=== PATIENT | female | born 2000 | race Caucasian/White ===

== ENCOUNTER 2024-08-18 14:20 | Emergency (ER) | payer SELFPAY ==
[2024-08-18 14:21] VITALS: BP 117/70; PULSE 94; RESP 20; TEMP 36.2; O2SAT 97
[2024-08-18 14:25] VITALS: BP 117/70; PULSE 94; RESP 20; TEMP 36.2; O2SAT 97
--- NOTE | 2024-08-18 14:27 | ED.GENADUL_ITS ---
Discharge Plan Disposition Patient Disposition: Home Discharge Details Clinical Impression: COVID-19 Primary Care Provider: Unknown,Unknown ED Provider: Vishal Villalobos Home Meds and New Rx's Prescriptions: New promethazine-DM 6.25-15 mg/5 mL syrup 5 ml PO Q6H PRNQty: 118 0RF cetirizine 10 mg tablet 10 mg PO DAILY PRNQty: 7 0RF benzonatate 100 mg capsule 100 mg PO BID PRNQty: 7 0RF fluticasone propionate [Flonase Allergy Relief] 50 mcg/actuation spray,suspension 1 spray intranasal DAILY Qty: 16 0RF Rx Instructions: administer into each nostril Pataday Once Daily Relief 0.7 % drops 1 drp ophthalmic (eye) DAILY PRNQty: 2.5 0RF Discharge Instructions Additional Instructions: You are seen in the emergency department for your cough and COVID infection. Please take these medications as directed. As we discussed if your oxygen saturations are in the high 80s or if you feel increasingly short of breath or if you do not urinate at least once every 8 hours while awake please return to the emergency department. For your pain please take medications as follows: 1. Take acetaminophen (Tylenol), 1,000 mg (two 500 mg tabs) every 6 hours [2. Take ibuprofen (Advil), 400 mg every 6 hours.] Discharge Data Discharge Date/Time-TO BE ENTERED AT DEPARTURE: 08/18/24 15:13 HPI General Date/Time Provider Initiated Documentation: 08/18/24 14:27 . HPI Narrative: MDM This is an overall very well-appearing afebrile and not tachycardic nor hypoxic 24-year-old female with COVID for which she will receive empiric trial of expectant outpatient management using her home pulse oximeter. Patient does have history of asthma and has received nirmatrelvir boosted ritonavir in the past however she has had multiple COVID infections at this point and my suspicion is that the side effects outweigh benefits as she may have been high risk for the first time she had COVID but the virus is significantly different at this point in time. She is not hypoxic to suggest benefit from dexamethasone or hospitalization. No pain or proportion to suggest necrotizing soft tissue infection. No fevers and no abnormal lung sounds to suggest concurrent bacterial pneumonia so I did not obtain a chest x-ray as I felt that there were risks of false positives and adverse reactions antibiotics. No nuchal rigidity to suggest meningitis. Patient has not been vomiting to suggest increased risk for subdural empyema. No significant posterior oropharynx erythema to suggest strep pharyngitis. Good range of motion in neck so I am not suspicious for retropharyngeal abscess. No nuchal rigidity to suggest meningitis. Patient did have slight tearing from her right eye however had no signs of conjunctivitis. I suspect that her clear eye discharge was secondary to COVID so I prescribed her antihistamine eyedrops. No purulent discharge to suggest bacterial conjunctivitis so no indication for antibiotics. Will treat her symptomatically with Flonase for her congestion and Tessalon Perles for her cough. We discussed return indications including worsening shortness of breath inability tolerate p.o. or less than 1 episode of urination every 8 hours. She understood her return indications and will follow-up with her primary care provider as needed. HPI The patient presents to the emergency room for evaluation of COVID-19. She tested positive for COVID-19 two days ago, marking her third encounter with the virus. She attempted to contact her primary care physician yesterday but was unsuccessful. She prefers not to visit the ER but finds her current symptoms intolerable. She reports severe congestion and experienced significant respirat ory distress yesterday, to the point of breathlessness even at rest. Her condition has slightly improved today, provided she remains relatively inactive. She has not received any COVID-19 vaccinations. She reports no diarrhea or vomiting but notes a decreased appetite. She reports altered taste and smell but not complete loss. She describes a general feeling of malaise. She is not aware of any fevers. She recently recovered from a severe illness three weeks ago, which was accompanied by a fever. Her current illness began with a scratchy throat, and she has been experiencing intermittent voice loss. Her cough is less frequent and severe than before. She took Mucinex Cold and Flu liquid yesterday around noon, which did not provide relief. She has severe asthma and has been using her inhaler more frequently, which caused her to feel jittery yesterday. She also reports ocular irritation and excessive tearing in her right eye since yesterday, which she attributes to potential exposure to the virus through coughing or sneezing into her hands and then touching her eye. Her vision in the affected eye is compromised due to the excessive tearing. Exam General: Well-appearing in no acute distress speaking in complete sentences. Head: Normocephalic, atraumatic. Eye: Right eye mild clear discharge. Extraocular eye movements intact. No conjunctival injection. No scleral icterus. No afferent pupillary defect. Ear, nose, mouth, throat: Grossly normal inspection. Normal voice, handling secretions normally. Uvula midline.No significant posterior oropharynx erythema. Neck: Trachea midline.Good range of motion in neck. Cardiovascular: Well-perfused distal extremities. Respiratory: Nonlabored respiration. Clear lungs bilaterally. No wheezes. No abnormal lung sounds. Gastrointestinal: Nondistended abdomen. Musculoskeletal: No edema. Moving all 4 extremities spontaneously. Skin: Normal for age and race, grossly normal temperature and turgor. No acute rash. Neurologic: Alert and appropriate, no apparent acute deficits. Psychiatric: Mood and manner are appropriate. Grooming and personal hygiene are appropriate. Related Data Home Medications ?Medication ?Instructions ?Recorded ?Confirmed benzonatate 100 mg capsule 100 mg PO BID PRN #7 caps 08/18/24 cetirizine 10 mg tablet 10 mg PO DAILY PRN #7 tabs 08/18/24 fluticasone propionate 50 1 spray intranasal DAILY #16 grams 08/18/24 mcg/actuation nasal spray,suspension (Flonase Allergy Relief) olopatadine 0.7 % eye drops 1 drp ophthalmic (eye) DAILY PRN 08/18/24 (Pataday Once Daily Relief) #2.5 mL promethazine-DM 6.25 mg-15 mg/5 mL 5 ml PO Q6H PRN #118 mL 08/18/24 oral syrup Previous Rx's ?Medication ?Instructions ?Recorded benzonatate 100 mg capsule 100 mg PO BID PRN #7 caps 08/18/24 cetirizine 10 mg tablet 10 mg PO DAILY PRN #7 tabs 08/18/24 fluticasone propionate 50 1 spray intranasal DAILY #16 grams 08/18/24 mcg/actuation nasal spray,suspension (Flonase Allergy Relief) olopatadine 0.7 % eye drops 1 drp ophthalmic (eye) DAILY PRN 08/18/24 (Pataday Once Daily Relief) #2.5 mL promethazine-DM 6.25 mg-15 mg/5 mL 5 ml PO Q6H PRN #118 mL 08/18/24 oral syrup Allergies Allergy/AdvReac Type Severity Reaction Status Date / Time amoxicillin Allergy Skin Rash Verified 08/18/24 14:24 General Stated Complaint: RespSymp TRISHA: 3 Course Vital Signs Vital signs: Vital Signs Temperature 36.2 C L 08/18/24 14:21 Pulse 94 H 08/18/24 14:21 Respiratory Rate 20 08/18/24 14:21 Blood Pressure 117/70 08/18/24 14:21 Pulse Oximetry 97 08/18/24 14:21 Temperature 36.2 C L 08/18/24 14:25 Temperature Source Oral 08/18/24 14:25 Pulse 94 H 08/18/24 14:25 Respiratory Rate 20 08/18/24 14:25 Blood Pressure 117/70 08/18/24 14:25 Blood Pressure Position Sitting 08/18/24 14:25 Pulse Oximetry 97 08/18/24 14:25 Oxygen Delivery Method Room Air 08/18/24 14:25 Oxygen Flow Rate 0 08/18/24 14:25 Medical Decision Making Quality:SDOH Health Related Social Needs: No Data to Display PFSH All Active Problems (Updated 08/18/24 @ 14:49 by Vishal Villalobos MD) COVID-19 (Acute) Social History Smoking/Tobacco Use Status: Current every day Tobacco Type: e-cigarettes Smoking risk assessment performed?: Yes Alcohol Intake: current Alcohol Intake frequency: a few times a week Drug use: Daily Substance use type: marijuana Do you feel safe at home: Yes Do you feel safe in your relationship?: Yes PAWSS Have you Been Recently Intoxicated or Drunk Within the Last 30 days?: No Have you Ever Experienced Previous Episodes of Alcohol Withdrawal?: No Have you ever Experienced Withdrawal Seizures?: No Have you ever Experienced Delirium Tremens(DT)s?: No Have you ever undergone Alcohol Rehabilitation Treatment (i.e, inpt ot outpatient treatment programs)?: No Have you ever Experienced Blackouts?: No Have you ever Combined Alcohol with other Downers within the last 90 days?: No Have you ever Combined Alcohol with any other Substance of Abuse during the last 90 days?: No Positive Blood Alcohol level on Presentation? [PCS.BAL]: No Evidence of Increased Autonomic Activity (i.e. HR>120, tremor, sweating, agitation, nausea)?: No Result: 0
[2024-08-18] MEDS: Acetaminophen 500 MG TAB 1000 MG PO (14:59)
[2024-08-18] MEDS: Benzonatate 100 MG CAP PO (14:59)
[2024-08-18] MEDS: Ibuprofen 600 MG TAB PO (15:00)
--- OUTSIDE RECORDS SUMMARY | 2024-08-18 15:26 | XMS_ITS | Encounter Summary ---
Author Organization [facility] Address [address] [place] [address] Care Team Providers Care Sheet Turner Name Role Phone [facility] Primary Care Provider Encounter Details Date Type Department Care Team (Latest Contact Info) Description 07/10/2022 Travel Social History Tobacco Use Types Packs/Day Years Used Date Smoking Tobacco: Every Day Smokeless Tobacco: Never Comments:vapes, no cigarette s Alcohol Use Standard Drinks/Week Comments Yes 0 (1 standard drink = 0.6 oz pur e alcohol) about 3 times per month Comments Unknown Sex and Gender Information Value Date Recorded Sex Assigned at Not on file Legal Sex Female 18:31 EST Gender Identity Not on file Sexual Orientation Not on file COVID-19 Exposure Response Date Recorded In the last 10 days, have yo u been in contact with someone who was confirmed or suspected to have Coronavirus/COVID-19? No / Unsure 07/10/2022 16:45 EST documented as of this encounter Functional Status * Are you deaf or do you have serious difficulty hearing? Answer Date of Assessment Author No 07/10/2022 16:45 EST Jeri Garza RN documented as of this encounter Plan of Treatment Not on file documented as of this encounter Visit Diagnoses Not on filedocumented in this encounter Additional Health Concerns Infection Onset Date Last Indicated Resolved Time R/O COVID-19 07/10/2022 07/10/2022 07/15/2022 22:1 5 EST RSV 07/10/2022 07/10/2022 07/20/2022 22:1 5 EST documented as of this encounter Care Teams Sheet Turner Relationship Specialty Start Date End Date Care, [place] [address] PCP - General Family Medicine - Primary Care 06/25/21 05/16/24 documented as of this encounter
--- OUTSIDE RECORDS SUMMARY | 2024-08-18 15:26 | XMS_ITS | Encounter Summary ---
Author Organization [facility] Address [address] [place] [address] Care Team Providers Care Net Manager Name Role Phone Edwina Naylor Isacc [employer]PER[employer] Primary Care Provider + Reason for Visit * Reason Comments Shortness of Breath Patient arrives to E D reporting SOB starting this morning. Pt reporting spO2 89% on RA on home O2 sensor. RR 22, spO2 100% in triage. Hx: Asthma Encounter Details Date Type Department Care Team (Late st Contact Info) Description 05/17/2024 9:38 EDT - 05/17/2024 11:11 EDT Emergency [facility] Emergency Department - Main [address] [address] David Stallings MD [address] [place] [phone] Shortness of breath (Primary Dx); Asthma with acute exacerbation, unspecified asthma severity, unspecified whether persistent Discharge Disposition: Home or Self Care Social History Tobacco Use Types Packs/Day Years Used Date Smoking Tobacco: Every Day Smokeless Tobacco: Never Tobacco Cessation:Ready to Q uit: Not Asked; Counseling Given: Not Answered Comments:vapes, no cigarettes Alcohol Use Standard Drinks/Week Comments Yes 0 (1 standard drink = 0.6 oz pur e alcohol) about 3 times per year Comments Unknown Sex and Gender Information Value Date Recorded Sex Assigned at Not on file Legal Sex Female 18:31 EST Gender Identity Not on file Sexual Orientation Not on file documented as of this encounter Last Filed Vital Signs Vital Sign Reading Time Taken Comments Blood Pressure 135/60 05/17/2024931 EDT Pulse - - Temperature 36.3 ??C (97.4 ??F) 05/17/2024931 EDT Respiratory Rate 22 05/17/2024931 EDT Oxygen Saturation 100% 05/17/2024931 EDT Inhaled Oxygen Concentration - - Weight 102.1 kg (225 lb) 05/17/2024931 EDT Height 165.1 cm (5' 5) 05/17/2024931 EDT Body Mass Index 37.44 05/17/2024931 EDT documented in this encounter Functional Status * Are you deaf or do you have serious difficulty hearing? Answer Date of Assessment Author No 05/17/2024 9:30 EDT Karishma Sanz RN documented as of this encounter Discharge Instructions * Discharge Instructions* Pauly Marroquin PA-C - 05/17/2024 10:43 EDT You Were Seen For shortness of breath What We Found Your evaluation showed you were negative for COVID, flu and RSV You had some slight wheezing and were given an albuterol treatment We are sending home with an albuterol inhaler, you may use this every 2-4 hours with 2 puffs as needed for shortness of breath You were also given a steroid to help with your breathing What to Expect Expect that your symptoms should resolve What to Do Please rest, stay well-hydrated Please continue with your home medications, you may use the albuterol inhaler every 4 hours as needed for shortness of breath When to See a Doctor Please follow up with your primary care doctor When to Return Return to the emergency department immediately for new or worsening shortness of breath or chest pain, inability to eat or drink, blood in your stool or vomit, lower extremity swelling, or any other new or concerning symptoms to you documented in this encounter Medications at Time of Discharge ADVAIR DISKUS 250-50 mcg/dose diskus inhaler INHALE 1 DOSE BY MOUTH TWICE DAILY 09/10/2022 albuterol (ACCUNEB) 2.5 mg /3 mL (0.083 %) nebulizer solution USE 1 VIAL IN NEBULIZER EVERY 6 HOURS 11/24/2022 albuterol 90 mcg/actuation inhaler Inhale 2 Puffs as directed every 4 hours as needed for Wheezing. amitriptyline (ELAVIL) 25 mg tablet Take 1 Tablet by mouth at bedtime. 09/15/2022 BINAXNOW COVID-19 AG SELF TEST kit TEST DIRECTED TODAY 03/12/2022 cetirizine (ZYRTEC) 10 mg tablet Take 1 Tablet by mouth daily. fluconazole (DIFLUCAN) 150 mg tablet 11/16/2022 montelukast (SINGULAIR) 10 mg tablet Take 1 Tablet by mouth daily. PROAIR RESPICLICK 90 mcg/actuation inhaler inhale 1 puff by mouth every 4 hours as needed 02/14/2023 SPRINTEC, 28, 0.25-35 mg-mcg per tablet 02/19/2023 valACYclovir (VALTREX) 1 gram tablet TAKE 2 TABLETS BY MOUTH TWICE DAILY FOR 1 DAY 10/29/2022 documented as of this encounter Discharge Disposition Disposition Code Departure Means Destination Comment s Home or Self Senior Living documented in this encounter ED Notes * Marina Tobar RN - 05/17/2024 1024 EDT Pt OOB on RA. SpO2 97-87% on RA HR 86. TG marroquin aware. Patient is resting quietly with no complaints states I feel better after neb * Pauly Marroquin PA-C - 05/17/2024 0928 EDT Images from the original note were not included. [facility] Emergency Department Note Emergency Department Visit Medical Decision Making This is a 24 y.o. female with PMHx of asthma (no prior intubations or hospitalizations) who is presenting to the Emergency Department with shortness of breath and chest tightness sensation over the past day. Vital signs within normal limits, she is saturating 97% on room air, she intermittently has increased work of breathing however with counseling this improves. Lung sounds are overall clear, slightly diminished at the bases but no wheezing. Differential diagnosis includes asthma exacerbation, reactive airway disease, COVID-19 given reports of cough and congestion, seasonal allergies. Seemsless likely to be pneumonia given 1 day of symptoms and no fevers. Will plan for COVID-19 testing, will plan for albuterol inhaler, will plan for continuous pulse oximetry, will observe and reassess. ED Course Relevant Data as of 05/17/24 1103 Tika May 17, 2024 1048 SARS CoV2, Flu A/B, RSV Detect by PCR COVID, flu negative [HG] 1048 Ambulatory sat normal [HG] 1103 Discussed findings and plan. Return precautions given. Patient well appearing. Discharge home to follow up with PCP [HG] Relevant Data User Index [HG] Pauly Marroquin PA-C Medical Decision Making Problems Addressed: Asthma with acute exacerbation, unspecified asthma severity, unspecified whether persistent: complicated acute illness or injury Shortness of breath: complicated acute illness or injury Amount and/or Complexity of Data Reviewed Labs: Decision-making details documented in ED Course. Risk Prescription drug management. The following problems were addressed: Final diagnoses: Shortness of breath Asthma with acute exacerbation, unspecified asthma severity, unspecified whether persistent Chief complaint: Chief Complaint Patient presents with Shortness of Breath Patient arrives to ED reporting SOB starting this morning. Pt reporting spO2 89% on RA on home O2 sensor. RR 22, spO2 100% in triage. Hx: Asthma HPI: 24 y.o. female with PMHx of asthma (no prior intubations or hospitalizations) who is presenting to the Emergency Department with shortness of breath and chest tightness sensation over the past day. Patient states she drove an hour and a half from [facility] for work.On her ride over she noted chest tightness and shortness of breath sensation. She started feeling woozy so pulled over. She had a pulse oximeter in the car which initially read 88 to 89% however increased to the 90s after some time. She does report over the past 2 days she has had a cough productive of green sputum. Mild congestion. She reports that her asthma triggers include inhalation of things like perfume. Denies any recent exposures. She does report that she had a lapse in her insurance recently and has not been taking the Advair because she does not like the powder. She is still takingher montelukast and cetirizine, but has run out of her inhaler. She denies any hemoptysis, no lowerextremity swelling. History was provided by: Patient, records Patient's pertinent PMH, FH, SH were reviewed and edited as necessary. Nurse note reviewed and confirmed. Physical Exam Patient Vitals for the past 24 hrs: BP Temp Temp src Resp SpO2 Height Weight 05/17/24 0932 135/60 36.3 ??C (97.4 ??F) Oral 22 100 % 165.1 cm (65) (!) 102.1 kg (225 lb) A medical screening exam was performed. Physical Exam Gen: BP 135/60 (BP Cuff Location: Left arm, BP Patient Position: Sitting) Temp 36.3 ??C (97.4 ??F) (Oral) Resp 22 Ht 165.1 cm (65) Wt (!) 102.1 kg (225 lb) SpO2 100% BMI 37.44 kg/m?? . Well-appearing, no distress. Eyes: Anicteric. PERRL ENT: Atraumatic. Oropharynx no tonsillar erythema or exudates. Resp: Slightly increased work of breathing however with counseling this slows. Lung sounds are slightly diminished at the bases, otherwise clear to auscultation. CV: RRR. No lower extremity swelling or asymmetry. GI: Nondistended. Nontender to palpation. MSK: No deformities, well perfused extremities Skin: Warm, dry. no rash, no bruising. Neuro: Normal speech. alert & oriented x 3,. GCS 15 Psych: Normal affect. Disposition: Home Condition on Discharge: Good Reasons to return to the ED were reviewed in detail. The patient agrees with this plan and disposition. This chart was generated using voice-recognition software. I have read the note but there are oftensubtle changes that are difficult to identify. Please contact me for clarification if necessary. Cosigned by David Stallings MD at 05/19/2024 15:42 EDT Associated attestation - David Stallings MD - 05/19/2024 1542 EDT I reviewed this case with the Advanced Practice Provider. I personally made/approved the managementplan for this patient and take responsibility for the patient management. I evaluated this patient [id number] and provided a substantive portion of the patient's care. My personal evaluation included a face to face history and physical exam, review of nursing notes, review of vital signs, review of relevant records, and review of diagnostic data. Based on all of these elements I formulated, and/or participated substantively in the medical decision making, including assessing the level of risk of the patient's complaints and condition, establishing a diagnosis and/or selecting management options. Final diagnoses: Shortness of breath Asthma with acute exacerbation, unspecified asthma severity, unspecified whether persistent documented in this encounter Plan of Treatment Not on file documented as of this encounter Procedures Procedure Name Priority Date/Time Associated Diagnosis Comments SARS COV2, FLU A/B, RSV DETECT BY PCR STAT 05/17/2024 9:36 EDT documented in this encounter Results * SARS COV2, FLU A/B, RSV DETECT BY PCR (05/17/2024 9:36 EDT) FLU A RNA Result (FLARES) Negative Negative 05/17/2024 10:41 EDT [facility] FLU B RNA Result (FLBRES) Negative Negative 05/17/2024 10:41 EDT [facility] RSV RNA Result (RSVRES) Negative Negative 05/17/2024 10:41 EDT [facility] COVID-19 rt-PCR Result Negative Negative 05/17/2024 10:41 EDT [facility] Comment: Negative results do not preclude 2019-nCoV infection and should not be used as the sole basis for treatment or other patient management decisions. Negative results must be combined with clinical observations, patient history, and epidemiological information. Performed on the [email or web address] GeneXpert Instrument Swab NASOPHARYNGEAL STRUCTURE / Unknown Swab / Unknown 05/17/2024 9:36 EDT 05/17/2024 9:53 EDT us Gilma Fuentes MD MICROBIOLOGY - GENERAL ORDERABLES Final Result [facility] [address] [place] [id number] documented in this encounter Visit Diagnoses Diagnosis Shortness of breath- Primary Asthma with acute exacerbation, unspecified asthma severity, unspecified whether persistent documented in this encounter Administered Medications Inactive Administered Medications - up to 3 most recent administrations Medication Order MAR Action Action Date Dose Rate Site albuterol (VENTOLIN HFA) inhaler STARTER PACK 1 Package, inhalation, NOW X1, 1 dose, On Tika 05/17/24 at 1045, STAT Given 05/17/2024 10:59 EDT 1 Package dexAMETHasone (DECADRON) tablet 6 mg 6 mg, oral, NOW X1, 1 dose, On Tika 05/17/24 at 1045, STAT Given 05/17/2024 10:59 EDT 6 mg ipratropium-albuteroL (DUONEB) 0.5 mg-3 mg(2.5 mg base)/3 mL nebulizer solution 3 mL 3 mL, nebulization, NOW X1, 1 dose, On Tika 05/17/24 at 1000, STAT Given 05/17/2024 10:10 EDT 3 mL documented in this encounter Active and Recently Administered Medications Times are shown in EDT. Scheduled Medication Order 05/15/2024 05/16/2024 05/17/2024 albuterol (VENTOLIN HFA) inhaler STARTER PACK (COMPLETED) 1 Package, inhalation, NOW X1, 1 dose, On Tika 24 at 1045, STAT 1059 (Given - Provid er: Marina Tobar RN) dexAMETHasone (DECADRON) tablet 6 mg (COMPLETED) 6 mg, oral, NOW X1, 1 dose, On Tika 24 at 1045, STAT 1059 (Given - Provid er: Marina Tobar RN) ipratropium-albuteroL (DUONEB) 0.5 mg-3 mg(2.5 mg base)/3 mL nebulizer solution 3 mL (COMPLETED) 3 mL, nebulization, NOW X1, 1 dose, On Tika 05/17/24 at 1000, STAT 1010 (Given - Provid er: Patel Head RN) documented in this encounter Additional Health Concerns Infection Onset Date Last Indicated Resolved Time R/O COVID-19 05/17/2024 05/17/2024 05/17/2024 10:4 1 EDT documented as of this encounter Care Teams Net Manager Relationship Specialty Start Date End Date Edwina Naylor NP [address] [place] [phone] PCP - General Family Medicine - Primary Care 05/17/24 documented as of this encounter
--- OUTSIDE RECORDS SUMMARY | 2024-08-18 15:26 | XMS_ITS | Encounter Summary ---
Author Organization [facility] Address [address] [place] [address] Care Team Providers Care Special Forces Specialist Name Role Phone Care, [facility] Primary Care Provider Reason for Visit * Reason Comments COVID-19 Pt sts she tested po sitive for covid via home test today. Co sore throat, nausea, headaches. In no resp distress at this time. Encounter Details Date Type Department Care Team (Late st Contact Info) Description 07/22/2023 19:49 EST - 07/22/2023 20:21 EST Emergency [facility] Emergency Department [address] [place] [address] Alex Myers MD [address] [place] [address] COVID-19 (Primary Dx) Discharge Disposition: Home or Self Care Social [...] Sign Reading Time Taken Comments Blood Pressure 136/82 07/22/2023 1942 EST Pulse 102 07/22/2023 2000 EST Temperature 38.8 ??C (101.9 ??F) 07/22/2023 194 EST Respiratory Rate 20 07/22/20231999 EST Oxygen Saturation 97% 07/22/20231999 EST Inhaled Oxygen Concentration - - Weight - - Height - - Body Mass Index - - documented in this encounter Functional Status * Are you deaf or do you have serious difficulty hearing? Answer Date of Assessment Author No 10/13/2022 18:19 EST Bharat Carreno RN documented as of this encounter Discharge Instructions * Discharge Instructions* Alex Myers MD - 07/22/2023 19:57 EST [facility] Emergency Department Discharge Instructions Diagnosis: COVID Instructions / expected course of illness: Symptoms should improve over the next several days. Takethe Paxlovid we have given you as this reduces the risk of needing to be hospitalized with severe illness For pain you can take: Ibuprofen (also known as advil or motrin) 400-600mg Acetaminophen (known as Tylenol) 650mg You can alternate these every 3 hours or take them together every 6 hours. Follow up: With your primary care doctor Return Precautions: If you have significant worsening of your symptoms especially significant worsening trouble breathing or other symptoms that are particularly concerning to you please return to the emergency room forreevaluation. documented in this encounter Medications at Time [...] Destination Comment s Home or Self Senior Care documented in this encounter ED Notes * Alex Myers MD - 07/22/2023 192 EST Emergency Department Visit Medical Decision Making Medical Decision Making COVID-19: complicated acute illness or injury Risk OTC drugs. Prescription drug management. 23-year-old with a history of asthma presents for evaluation of myalgias, fevers, headache, cough and chest discomfort. Tested positive for COVID this morning. Symptoms seem very consistent with COVID-19 infection. No wheezing on exam. No tachypnea. No hypoxia. Treated with ibuprofen and Tylenol for fever and tachycardia. Discharged with Paxlovid due to history of asthma. Final diagnoses: COVID-19 Disposition: Discharged Chief complaint: Myalgias, cough, chest discomfort, headache, tested positive for COVID this HPI Emily Norton is a 23 y.o. female with history of who presents to the ED for the above. Roughly 2 to 3 days of symptoms. No significant difficulty breathing. Tried some ibuprofen this morning but none since then. No vomiting reported. Patient's pertinent PMH, FH, SH were reviewed and edited as necessary. Nursing notes reviewed. A medical screening exam was performed. Physical Exam BP 136/82 (BP Cuff Location: Left arm, BP Patient Position: Sitting) Pulse 102 Temp (!) 38.8 ??C (101.9 ??F) (Oral) Resp 20 SpO2 97% Physical Exam Vitals and nursing note reviewed. Constitutional: General: She is not in acute distress. Appearance: She is well-developed. HENT: Head: Normocephalic and atraumatic. Neck: Trachea: No tracheal deviation. Cardiovascular: Rate and Rhythm: Normal rate and regular rhythm. Pulmonary: Effort: Pulmonary effort is normal. No respiratory distress. Musculoskeletal: General: Normal range of motion. Cervical back: Normal range of motion. Skin: General: Skin is warm and dry. Findings: No rash. Neurological: Mental Status: She is alert and oriented to person, place, and time. Motor: No abnormal muscle tone. Procedures Procedures documented in this encounter Plan of Treatment Not on file documented as of this encounter Visit Diagnoses Diagnosis COVID-19- Primary documented in this encounter Administered Medications Inactive Administered Medications - up to 3 most recent administrations Medication Order MAR Action Action Date Dose Rate Site acetaminophen (TYLENOL) tablet 975 mg 975 mg (rounded from 1,000 mg), oral, NOW X1, 1 dose, On Tue07/22/23 at 2014, Routine Given 07/22/2023 20:13 EST 975 mg ibuprofen (MOTRIN) tablet 400 mg 400 mg, oral, NOW X1, 1 dose, On Tue07/22/23 at 2014, Routine Given 07/22/2023 20:13 EST 400 mg nirmatrelvir-ritonavir (PAXLOVID 300-100 (EUA)) Starter Pack 1 Package 1 Package, oral, Once (Without Time Specified), 10 doses, Starting on Tue07/22/23 at 1956, Until Tue07/22/23 at 2221, Routine Given 07/22/2023 20:13 EST 1 Package documented in this encounter Active and Recently Administered Medications Times are shown in EST. Scheduled Medication Order 07/20/2023 07/21/2023 07/22/2023 acetaminophen (TYLENOL) tablet 975 mg (COMPLETED) 975 mg (rounded from 1,000 mg), oral, NOW X1, 1 dose, On Tue07/22/23 at 2014, Routine 2012 (Given - Provid er: Brunilda Vasquez RN) ibuprofen (MOTRIN) tablet 400 mg (COMPLETED) 400 mg, oral, NOW X1, 1 dose, On Tue07/22/23 at 2014, Routine 2012 (Given - Provid er: Brunilda Vasquez RN) nirmatrelvir-ritonavir (PAXLOVID 300-100 (EUA)) Starter Pack 1 Package 1 Package, oral, Once (Without Time Specified), 10 doses, Starting on Tue07/22/23 at 1956, Until Tue07/22/23 at 2221, Routine 2012 (Given - Provid er: Brunilda Vasquez RN) documented in this encounter Care Teams Special Forces Specialist Relationship Specialty Start Date End Date Care, [address] [address] PCP - General Family Medicine - Primary Care 06/25/21 05/16/24 documented as of this encounter
--- OUTSIDE RECORDS SUMMARY | 2024-08-18 15:26 | XMS_ITS | Encounter Summary ---
Author Organization [facility] Address [address] [place] [address] Care Team Providers Care Neon Installer Name Role Phone [facility] Primary Care Provider Encounter Details Date Type Department Care Team (Latest Contact Info) Description 01/22/2022 Travel Social History Tobacco Use Types Packs/Day [...] suspected to have Coronavirus/COVID-19? No / Unsure 01/22/2022 14:23 EDT documented as of this encounter Plan of Treatment Not on file documented as of this encounter Visit Diagnoses Not on filedocumented in this encounter Care Teams Neon Installer Relationship Specialty Start Date [facility] [address] [place] [address] PCP - General Family Medicine - Primary Care 06/25/21 05/16/24 documented as of this encounter
--- OUTSIDE RECORDS SUMMARY | 2024-08-18 15:26 | XMS_ITS | Encounter Summary ---
Author Organization [facility] Address [address] [place] [address] Care Team Providers Care Senior Application Software Engineer Name Role Phone [facility] Primary Care Provider Reason for Visit * Reason Comments Sore Throat Cough Shortness of Breath Nasal Congestion Encounter Details Date Type Department Care Team ([facility] st Contact Info) Description 02/21/2023 13:00 EDT Walk-In [facility] [address] [place] [id number] Anna Kenney PA-C [address] [place], [place] [id number] Acute cough (Primary Dx); Moderate persistent asthma with acute exacerbation; Viral URI Social History Tobacco Use Types Packs/Day Years [...] Sign Reading Time Taken Comments Blood Pressure 108/60 02/21/2023 1316 EDT Pulse 83 02/21/2023 1316 EDT Temperature 36.8 ??C (98.3 ??F) 02/21/2023 1316 EDT Respiratory Rate 24 02/21/2023 1316 EDT Oxygen Saturation 96% 02/21/2023 1338 EDT Inhaled Oxygen Concentration - - Weight - - Height - - Body Mass Index - - documented in this encounter Functional Status * Are you deaf or do you have serious difficulty hearing? Answer Date of Assessment Author No 10/13/2022 18:19 Bharat Price RN documented as of this encounter Patient Instructions * Patient Instructions* Anna Kenney PA-C - 02/21/2023 13:00 EDT Emily -- You were seen today for a cough, increased wheezing and shortness of breath. You are quite wheezy, chest x-ray does not show any pneumonia however. Since you are still vaping and because of your history of asthma and lung infections I am going to go ahead and cover you with a short course of antibiotics as well as a short course of prednisone, asteroid, which will help decrease your wheezing and chest congestion. Please rest extra the next few days. Please use your Advair twice daily as directed. Please use your albuterol rescue inhaler every 4 hours. Try to sleep elevated if you can for improved breathing. If anything is worsening despite this planof care, particularly if you are more short of breath I want you to be seen at the emergency department please. documented in this encounter Ordered Prescriptions Prescription Sig Dispense Quantity Refills Last Filled Start Date End Date doxycycline (VIBRA-TABS) 100 mg tablet Take 1 Tablet by mouth 2 times daily for 5 days. 10 Tablet 02/21/2023 3 predniSONE (DELTASONE) 20 mg tablet Take 2 Tablets by mouth daily for 5 days. 10 Tablet 02/21/2023 3 documented in this encounter Progress Notes * Lyly Frias RN - 02/21/2023 1300 EDT CC/HPI: Pt reports sore throat, cough, SOB. Sx began morning. Also congestion. Hx of asthma. Covid Screening: In the last 72 hours, has the patient had: New or unusual cough, shortness of breath, new nasal congestion, sore throat, fever, chills, body aches, or new loss of taste or smell without a reasonable alternative diagnosis*? (If yes, assign to ARC)- as above In the past 10 days, has the patient had a positive Covid test OR a confirmed close Covid exposure (<6ft for > 15mins in 24hr period)? (if yes, assign to ARC, regardless of vaccination status)-NO Covid antigen test x1 night/Tuesday morning. *may be determined by RN or in discussion with available provider (SUPPLIER QUALITY ENGINEERING MANAGER's and CCA's can defer to Charge Nurse to complete triage when appropriate) PCP: [facility] * Anna Kenney PA-C - 02/21/2023 1300 EDT [facility] Chief Complaint(s): Chief Complaint Patient presents with ??? Sore Throat ??? Cough ??? Shortness of Breath ??? Nasal Congestion Assessment & Plan: Emily was seen today for sore throat, cough, shortness of breath and nasal congestion. Diagnoses and all orders for this visit: Acute cough - XR CHEST 2 VIEWS Moderate persistent asthma with acute exacerbation Viral URI Other orders - predniSONE (DELTASONE) 20 mg tablet; Take 2 Tablets by mouth daily for 5 days. - doxycycline (VIBRA-TABS) 100 mg tablet; Take 1 Tablet by mouth 2 times daily for 5 days. Emily Norton is a pleasant 22 y.o. yr old female seen today for nasal congestion, cough and shortness of breath. She has asthma and is a smoker. Exam significant for mild - mod low 02, wheezing, neg cxr for pneumonia. Pt has inhalers at home. Is not in distress. Will increase use albuterol. Given smoker will have her start abx and prednisone for asthma flare. An appropriate medical screening examination was performed. The patient was assessed prior to discharge and deemed stable for discharge home. I printed material and reviewed home management and follow up in detail with patient, see patient instructions below. Patient is advised in use of [facility] to access any lab results or other pertinentvisit information. All questions are answered. Patient is advised to follow up for urgent reassessment for any new/worsening signs and symptoms here at [facility] or ED. Otherwise, follow up with PCP/or if no PCP at [facility]/ER for symptoms that persist past current course of treatment or expected resolution as discussed. Patient verbalizesunderstanding and agreement with this plan of care. HPI: Emily presents with 3-4 days sore throat, worsening cough and shortness of breath. She is asthmatic, she has had more wheezing. She uses all her inhalers daily/routinely. She has had to use rescue inhaler. She does not smoke but she does vape. She denies feeling light headed or dizzy. She has done covid testing at home, negative. No fevers, sweats or chils. ROS: See HPI for details Objective: Vitals and nursing notes reviewed Examination: BP 108/60 (BP Cuff Location: Right arm, BP Patient Position: Sitting, BP Cuff Sizes: Adult, long) Pulse 83 Temp 36.8 ??C (98.3 ??F) (Oral) Resp 24 SpO2 96% Physical Exam Constitutional: General: She is not in acute distress. Appearance: Normal appearance. HENT: Right Ear: Tympanic membrane normal. Left Ear: Tympanic membrane normal. Nose: Congestion present. Mouth/Throat: Mouth: Mucous membranes are moist. Pharynx: Posterior oropharyngeal erythema present. No oropharyngeal exudate. Comments: Posterior cobblestone erythema, normal tonsils Eyes: Conjunctiva/sclera: Conjunctivae normal. Cardiovascular: Rate and Rhythm: Normal rate and regular rhythm. Heart sounds: No murmur heard. Pulmonary: Effort: Pulmonary effort is normal. No respiratory distress. Breath sounds: Wheezing present. No rhonchi or rales. Musculoskeletal: Cervical back: Neck supple. Lymphadenopathy: Cervical: No cervical adenopathy. Skin: General: Skin is warm. Findings: No rash. Neurological: Mental Status: She is alert and oriented to person, place, and time. I independently interpreted any xray imaging done here today and reviewed radiology report. Data reviewed with patient (past results): PMHx/Allergies/DI/pertinent recent Labs/OV's This note may be in part documented using [employer] software. Please forgive any errors, omissions or typos that may result from use of dictation. documented in this encounter Plan of Treatment Not on file documented as of this encounter Procedures Procedure Name Priority Date/Time Associated Diagnosis Comments XR CHEST 2 VIEWS STAT 02/21/2023 13:5 3 EDT Acute cough documented in this encounter Results * XR CHEST 2 VIEWS (02/21/2023 13:53 EDT) Anatomical Region Laterality Modality Computed Radiogr aphy 02/21/2023 14:0 6 EDT Impressions 02/21/2023 14:06 EDT No acute findings. [id number] Narrative 02/21/2023 14:06 EDT XR CHEST 2 VIEWS ??02/21/2023 1:40 PM CLINICAL HISTORY/COMMENTS: cough, sob, abnl breath sounds left upper;R05.1:Acute cough COMPARISON: 01/01/2021. TECHNIQUE: Frontal and lateral views of the chest. FINDINGS: Lungs: Small band of scarring in the mid right lung, unchanged. Lungs otherwise clear. Pleura/diaphragms: Normal. Cardiac and mediastinal contours: Normal. Soft tissues and extrathoracic findings: ??Normal. Bones: Normal. Procedure Note Kaleb Piper MD - 02/21/2023 XR CHEST 2 VIEWS 02/21/2023 1:40 PM CLINICAL HISTORY/COMMENTS: cough, sob, abnl breath sounds left upper;R05.1:Acute cough COMPARISON: 01/01/2021. TECHNIQUE: Frontal and lateral views of the chest. FINDINGS: Lungs: Small band of scarring in the mid right lung, unchanged. Lungsotherwise clear. Pleura/diaphragms: Normal. Cardiac and mediastinal contours: Normal. Soft tissues and extrathoracic findings: Normal. Bones: Normal. IMPRESSION No acute findings. [id number] Anna Kenney PA-C IMG DIAGNOSTIC IMAGING O RDERABLES Final Result documented in this encounter Visit Diagnoses Diagnosis Acute cough- Primary Moderate persistent asthma with acute exacerbation Viral URI Acute upper respiratory infections of unspecified site documented in this encounter Discontinued Medications Medication Sig Discontinue Reason Start Date End Da te nitrofurantoin, macrocrystal-monohydrat e, (MACROBID) 100 mg capsule Take 1 Capsule by mouth 2 times daily. Therapy completed 11/14/2022 02/21/2023 cyclobenzaprine (FLEXERIL) 5 mg tablet Take 1 Tablet by mouth daily. Therapy completed 10/03/2022 02/21/2023 PAXLOVID 300 mg (150 mg x 2)-100 mg tablet TAKE 3 TABLET BY MOUTH TWICE DAILY DIRECTED FOR 5 DAYS Therapy completed 03/12/2022 02/21/2023 documented as of this encounter Historical Medications * This list may reflect changes made after this encounter. SPRINTEC, 28, 0.25-35 mg-mcg per tablet 02/19/2023 valACYclovir (VALTREX) 1 gram tablet TAKE 2 TABLETS BY MOUTH TWICE DAILY FOR 1 DAY 10/29/2022 albuterol (ACCUNEB) 2.5 mg /3 mL (0.083 %) nebulizer solution USE 1 VIAL IN NEBULIZER EVERY 6 HOURS 11/24/2022 PROAIR RESPICLICK 90 mcg/actuation inhaler inhale 1 puff by mouth every 4 hours as needed 02/14/2023 fluconazole (DIFLUCAN) 150 mg tablet 11/16/2022 BINAXNOW COVID-19 AG SELF TEST kit TEST DIRECTED TODAY 03/12/2022 nitrofurantoin, macrocrystal-mon ohydrate, (MACROBID) 100 mg capsule Take 1 Capsule by mouth 2 times daily. 11/14/2022 3 cyclobenzaprine (FLEXERIL) 5 mg tablet Take 1 Tablet by mouth daily. 10/03/2022 3 PAXLOVID 300 mg (150 mg x 2)-100 mg tablet TAKE 3 TABLET BY MOUTH TWICE DAILY DIRECTED FOR 5 DAYS 03/12/2022 3 added in this encounter Care Teams Senior Application Software Engineer Relationship Specialty Start Date End Date [facility], [address] [address] PCP - General Family Medicine - Primary Care 06/25/21 05/16/24 documented as of this encounter
--- OUTSIDE RECORDS SUMMARY | 2024-08-18 15:26 | XMS_ITS | Encounter Summary ---
Author Organization [facility] Address [address] [place] [address] Care Team Providers Care Senior Branch Manager Name Role Phone [facility] Primary Care Provider Reason for Visit * Reason Comments Shortness of Breath Sob x 5 days. Dx wit h rsv 3 days ago here. No relief with inhaler at home. Encounter Details Date Type Department Care Team (Late st Contact Info) Description 07/13/2022 19:26 EST - 07/13/2022 21:09 EST Emergency [facility] Emergency Department [address] [place] [address] Josh Vazquez MD Moderate asthma with exacerbation, unspecified whether persistent (Primary Dx); Respiratory syncytial virus Discharge Disposition: Home or Self Care Social [...] 16:45 EST documented as of this encounter Last Filed Vital Signs Vital Sign Reading Time Taken Comments Blood Pressure 115/70 07/13/2022 2100 EST Pulse 83 07/13/2022 1859 EST Temperature - - Respiratory Rate 20 07/13/20222099 EST Oxygen Saturation 96% 07/13/20222099 EST Inhaled Oxygen Concentration - - Weight - - Height - - Body Mass Index - - documented in this encounter Functional Status * Are you deaf or do you have serious difficulty hearing? Answer Date of Assessment Author No 07/10/2022 16:45 EST Jeri Garza RN documented as of this encounter Discharge Instructions * Discharge Instructions* Josh Vazquez MD - 07/13/2022 20:43 EST Continue your current medications. Use albuterol inhaler with spacer 2 puffs every 4 hours. Lots of warm liquids, Mucinex for decongestant. Prednisone 60 mg (3 tablets) once per day for 5 days. Follow-up with your primary care provider. Return here if worse. documented in this encounter Medications at Time of Discharge albuterol 90 mcg/actuation inhaler Inhale 2 Puffs as directed every 4 hours as needed for Wheezing. BINAXNOW COVID-19 AG SELF TEST kit TEST DIRECTED TODAY 03/12/2022 cetirizine (ZYRTEC) 10 mg tablet Take 1 Tablet by mouth daily. montelukast (SINGULAIR) 10 mg tablet Take 1 Tablet by mouth daily. benzonatate (TESSALON) 100 mg capsule Take 1 Capsule by mouth 3 times daily as needed for up to 7 days for Cough. 21 Capsule 07/10/2022 07/17/2022 PAXLOVID 300 mg (150 mg x 2)-100 mg tablet TAKE 3 TABLET BY MOUTH TWICE DAILY DIRECTED FOR 5 DAYS 03/12/2022 02/21/2023 predniSONE (DELTASONE) 20 mg tablet Take 3 Tablets by mouth daily for 5 days. 15 Tablet 07/13/2022 07/18/2022 UNABLE TO FIND 10/13/2022 documented as of this encounter Ordered Prescriptions Prescription Sig Dispense Quantity Refills Last Filled Start Date End Date predniSONE (DELTASONE) 20 mg tablet Take 3 Tablets by mouth daily for 5 days. 15 Tablet 07/13/2022 12/04/202 2 documented in this encounter Discharge Disposition Disposition Code Departure Means Destination Home or Self Senior Care documented in this encounter ED Notes * Quique Gaytan RN - 07/13/20222106 EST Pt left prior to receiving spacer. * Josh Vazquez MD - 07/13/20222033 EST Emergency Department Visit Assessment and ED Course Patient with history of asthma, diagnosed with RSV July 10, presenting with increased shortnessof breath and wheezing. On exam, she is in no distress with normal room air oxygen saturation, diffuse expiratory wheeze, but no accessory muscle use. Given 3 stacked nebulizer treatments with significant improvement and near complete resolution ofwheezing. She will be discharged home to continue her usual medications, was given a spacer device for use with her albuterol inhaler, along with 5-day prednisone burst of 60 mg/day. Encouraged follow-up with PCP. Indicates understanding of return precautions. Final diagnoses: Moderate asthma with exacerbation, unspecified whether persistent Respiratory syncytial virus Disposition: Discharged Chief complaint: Short of breath HPI Emily Norton is a 22 y.o. female who presents to the ED for shortness of breath.Patient with history of asthma seen here July 06 with increased difficulty breathing, found to be RSV positive. Sheimproved with nebulizer treatments, discharged home to continue albuterol inhaler. Returns now complaining of increased difficulty breathing with wheezing unrelieved by albuterol MDI. She is also on Advair and montelukast for maintenance meds. She denies fever, no nausea or vomiting. She quit smoking cigarettes back in the spring, continues to vape nicotine, and smokes marijuana daily. History was provided by: Patient, chart review Patient's pertinent PMH, FH, SH were reviewed and edited as necessary. ROS A 10-point review of systems was performed. The patient answered negative to all questions with theexceptions of those explicitly detailed as positives in the HPI. Pertinent negatives are also explicitly stated. Physical Exam BP 115/72 Pulse 83 Resp 18 SpO2 96% A medical screening exam was performed. Physical Exam Vitals and nursing note reviewed. Constitutional: General: She is not in acute distress. Appearance: She is well-developed and well-nourished. Comments: Not in distress at rest HENT: Nose: Nose normal. Mouth/Throat: Mouth: Mucous membranes are moist. Pharynx: Oropharynx is clear. Eyes: Extraocular Movements: EOM normal. Conjunctiva/sclera: Conjunctivae normal. Pupils: Pupils are equal, round, and reactive to light. Cardiovascular: Rate and Rhythm: Normal rate and regular rhythm. Heart sounds: Normal heart sounds. Pulmonary: Effort: Pulmonary effort is normal. Comments: Diffuse expiratory wheeze throughout, no accessory muscle use Abdominal: Palpations: Abdomen is soft. Tenderness: There is no abdominal tenderness. Musculoskeletal: General: Normal range of motion. Cervical back: Normal range of motion and neck supple. Skin: General: Skin is warm and dry. Neurological: Mental Status: She is alert and oriented to person, place, and time. Cranial Nerves: No cranial nerve deficit. Psychiatric: Mood and Affect: Mood and affect normal. Laboratory results independently reviewed. Procedures Procedures documented in this encounter Plan of Treatment Not on file documented as of this encounter Visit Diagnoses Diagnosis Moderate asthma with exacerbation, unspecified whether persistent- Primary Respiratory syncytial virus Respiratory syncytial virus (RSV) documented in this encounter Administered Medications Inactive Administered Medications - up to 3 most recent administrations Medication Order MAR Action Action Date Dose Rate Site ipratropium-albuteroL (DUONEB) 0.5 mg-3 mg(2.5 mg base)/3 mL nebulizer solution 9 mL 9 mL, nebulization, NOW X1, 1 dose, On Tue07/13/22 at 2014, STAT Given 07/13/2022 20:20 EST 9 mL predniSONE (DELTASONE) tablet 60 mg 60 mg, oral, NOW X1, 1 dose, On Tue07/13/22 at 2014, STAT Given 07/13/2022 20:00 EST 60 mg documented in this encounter Active and Recently Administered Medications Times are shown in EST. Scheduled Medication Order 07/11/2022 07/12/2022 07/13/2022 inhalational spacing device (AEROCHAMBER) 1 Device 1 Device, inhalation, NOW X1, 1 dose, On Tue07/13/22 at 2100 2100 (Canceled Entry - Provider: Batch Job User Admin - Comment: Automatically canceled at discontinue of medication order) ipratropium-albuteroL (DUONEB) 0.5 mg-3 mg(2.5 mg base)/3 mL nebulizer solution 9 mL (COMPLETED) 9 mL, nebulization, NOW X1, 1 dose, On Tue07/13/22 at 2014, STAT 2019 (Given - Provid er: Ortiz Flanagan RT) predniSONE (DELTASONE) tablet 60 mg (COMPLETED) 60 mg, oral, NOW X1, 1 dose, On Tue07/13/22 at 2014, STAT 1999 (Given - Provid er: Ella Beach RN) documented in this encounter Orders Medications Ordered That Ike ht Not Have Been Administered Count Last Ordered Date First Ordered Date inhalational spacing device (AEROCHAMBER) 1 Device 1 07/13/2022 Nursing Count Last Ordered Date First Orde red Date PAGE RESPIRATORY THERAPY 1 07/13/2022 documented in this encounter Additional Health Concerns Infection Onset Date Last Indicated Resolved Time R/O COVID-19 07/10/2022 07/10/2022 07/15/2022 22:1 5 EST RSV 07/10/2022 07/10/2022 07/20/2022 22:1 5 EST documented as of this encounter Care Teams Senior Branch Manager Relationship Specialty Start Date End Date Care, [address] [address] PCP - General Family Medicine - Primary Care 06/25/21 05/16/24 documented as of this encounter
--- OUTSIDE RECORDS SUMMARY | 2024-08-18 15:26 | XMS_ITS | Referral Summary ---
Author Organization [facility] Address [address] [place] [address] Care Team Providers Care Battery Tester Field Name Role Phone Edwina Naylor HYDROGEN TREATER Primary Care Provider + Allergies Active Allergy Reactions Criticality Noted Date Comments Amoxicillin Hives 06/25/2021 Medications montelukast (SINGULAIR) 10 mg tablet Take 1 Tablet by mouth daily. Active cetirizine (ZYRTEC) 10 mg tablet Take 1 Tablet by mouth daily. Active albuterol 90 mcg/actuation inhaler Inhale 2 Puffs as directed every 4 hours as needed for Wheezing. Active amitriptyline (ELAVIL) 25 mg tablet Take 1 Tablet by mouth at bedtime. 3 Active ADVAIR DISKUS 250-50 mcg/dose diskus inhaler INHALE 1 DOSE BY MOUTH TWICE DAILY 3 Active BINAXNOW COVID-19 AG SELF TEST kit TEST DIRECTED TODAY 2 Active fluconazole (DIFLUCAN) 150 mg tablet 3 Active PROAIR RESPICLICK 90 mcg/actuation inhaler inhale 1 puff by mouth every 4 hours as needed 3 Active albuterol (ACCUNEB) 2.5 mg /3 mL (0.083 %) nebulizer solution USE 1 VIAL IN NEBULIZER EVERY 6 HOURS 3 Active valACYclovir (VALTREX) 1 gram tablet TAKE 2 TABLETS BY MOUTH TWICE DAILY FOR 1 DAY 3 Active SPRINTEC, 28, 0.25-35 mg-mcg per tablet 3 Active Social History Tobacco Use Types Packs/Day Years [...] on file Sexual Orientation Not on file Last Filed Vital Signs Vital Sign Reading Time Taken Comments Blood Pressure 135/60 05/17/2024 0932 EDT Pulse 102 07/22/2023 2000 EST Temperature 36.3 ??C (97.4 ??F) 05/17/2024 0932 EDT Respiratory Rate 22 05/17/2024 0932 EDT Oxygen Saturation 100% 05/17/2024 0932 EDT Inhaled Oxygen Concentration - - Weight 102.1 kg (225 lb) 05/17/2024 0932 EDT Height 165.1 cm (5' 5) 05/17/2024 0932 EDT Body Mass Index 37.44 05/17/2024 0932 EDT Functional Status * Are you deaf or do you have serious difficulty hearing? Answer Date of Assessment Author No 05/17/2024 9:30 EDT Karishma Sanz, ARTHUR Plan of Treatment Not on file Care Teams Battery Tester Field Relationship Specialty Start Date End Date Edwina Naylor NP [address] [place] [phone] PCP - General Family Medicine - Primary Care 05/17/24
--- OUTSIDE RECORDS SUMMARY | 2024-08-18 15:26 | XMS_ITS | Encounter Summary ---
Author Organization [facility] Address [address] [place] [address] Care Team Providers Care Civil Structural Engineer Name Role Phone [facility] Primary Care Provider Reason for Visit * SPEECH THERAPY TEACHER (Routine/Next Available) - Authorization Not Required Specialty Diagnoses / Procedures Referred By Christi martin Referred To Contact Diagnoses Dyspareunia in female Procedures US PELVIS TRANSVAGINAL W DOPPLER US PELVIS TRANSVAGINAL Harry Jama, LITHOPRESS OPERATOR [address] [address] Phone: tel: [place] [facility] [place]erral ID Status Reason Start Date Expiration Date Visits Requested Visits Authorized [id number] Authorization Not Required 09/16/2022 1 1 Encounter Details Date Type Department Care Team (Latest Contact Info) Description 09/17/2022 12:58 EST - 09/17/2022 23:59 EST Hospital En[place] [facility] [place] [facility] [place] [address] [place] [address] Dyspareunia in female Discharge Disposition: Home or Self Care Social [...] on file documented as of this encounter Functional Status * Are you deaf or do you have serious difficulty hearing? Answer Date of Assessment Author No 07/10/2022 16:45 EST Jeri Garza RN documented as of this encounter Medications at Time of Discharge ADVAIR DISKUS 250-50 mcg/dose diskus inhaler INHALE 1 DOSE BY MOUTH TWICE DAILY 09/10/2022 albuterol 90 mcg/actuation inhaler Inhale 2 Puffs as directed every 4 hours as needed for Wheezing. amitriptyline (ELAVIL) 25 mg tablet Take 1 Tablet by mouth at bedtime. 09/15/2022 BINAXNOW COVID-19 AG SELF TEST kit TEST DIRECTED TODAY 03/12/2022 cetirizine (ZYRTEC) 10 mg tablet Take 1 Tablet by mouth daily. montelukast (SINGULAIR) 10 mg tablet Take 1 Tablet by mouth daily. PAXLOVID 300 mg (150 mg x 2)-100 mg tablet TAKE 3 TABLET BY MOUTH TWICE DAILY DIRECTED FOR 5 DAYS 03/12/2022 02/21/2023 UNABLE TO FIND 10/13/2022 documented as of this encounter Discharge Disposition Disposition Code Departure Means Destination Home or Self Care documented in this encounter Plan of Treatment Not on file documented as of this encounter Procedures Procedure Name Priority Date/Time Associated Diagnosis Comments US PELVIS TRANSVAGINAL COMPLETE WITH LIMITED DUPLEX Routine 09/17/2022 13:39 EST Dyspareunia in female documented in this encounter Results * US PELVIS TRANSVAGINAL W DOPPLER (09/17/2022 13:39 EST) Anatomical Region Laterality Modality Pelvis Ultrasound 09/17/2022 14:1 7 EST Impressions 09/17/2022 14:17 EST No acute abnormality. Narrative 09/17/2022 14:17 EST INDICATION: deep X 1 yr? endo? fibroid; Dyspareunia in female. COMPARISON: None. DOPPLER: TECHNIQUE: Color and spectral Doppler imaging of the ovaries was performed. FINDINGS: RIGHT OVARY: ??Arterial and venous Doppler waveforms and color flow are present. LEFT OVARY: Arterial Doppler waveforms and color flow are present. Venous Doppler waveforms were unable to be obtained. GRAYSCALE: TECHNIQUE: Transvaginal grayscale ultrasound of the pelvis was performed. FINDINGS: UTERUS: The uterus is normal in size, shape and echotexture. It measures 8.3 cm x 4.3 cm x 3.3 cm. No intramural mass. The endometrial stripe measures 3.2 mm. RIGHT OVARY: Normal right ovary with a mean diameter of 1.8 cm contains a few tiny follicles. LEFT OVARY: Normal left ovary has a normal appearance with a mean diameter of 2.2 cm. PERITONEAL CAVITY: No free peritoneal fluid is identified. Procedure Note Nikhil Odell MD - 09/17/2022 INDICATION: deep X 1 yr? endo? fibroid; Dyspareunia in female. COMPARISON: None. DOPPLER: TECHNIQUE: Color and spectral Doppler imaging of the ovaries wasperformed. FINDINGS: RIGHT OVARY: Arterial and venous Doppler waveforms and color flow arepresent. LEFT OVARY: Arterial Doppler waveforms and color flow are present. VenousDoppler waveforms were unable to be obtained. GRAYSCALE: TECHNIQUE: Transvaginal grayscale ultrasound of the pelvis wasperformed. FINDINGS: UTERUS: The uterus is normal in size, shape and echotexture. It measures8.3 cm x 4.3 cm x 3.3 cm. No intramural mass. The endometrial stripemeasures 3.2 mm. RIGHT OVARY: Normal right ovary with a mean diameter of 1.8 cm contains afew tiny follicles. LEFT OVARY: Normal left ovary has a normal appearance with a mean diameterof 2.2 cm. PERITONEAL CAVITY: No free peritoneal fluid is identified. IMPRESSION No acute abnormality. us Harry Jama NP [facility] US ORDERABLES Sylvia l Result documented in this encounter Visit Diagnoses Diagnosis Dyspareunia in female documented in this encounter Care Teams Civil Structural Engineer Relationship Specialty Start Date End Date Care, [address] [address] PCP - General Family Medicine - Primary Care 06/25/21 05/16/24 documented as of this encounter
--- OUTSIDE RECORDS SUMMARY | 2024-08-18 15:26 | XMS_ITS | Encounter Summary ---
Author Organization [facility] Address [address] [place] [address] Care Team Providers Care Academic Adviser Name Role Phone [facility] Primary Care Provider Reason for Visit * Reason Comments Emesis Patient has been vom iting since yesterday morning. She attempted to drink pedialyte and has been continuously vomiting. No diarrhea. Mild abdominal pain. No urinary complaints. LMP was one week ago and typical. Encounter Details Date Type Department Care Team (Late st Contact Info) Description 10/13/2022 18:23 EST - 10/13/2022 19:26 EST Emergency [facility] Emergency Department [address], [place] [id number] Alex Myers MD [address] [place] [address] Nausea and vomiting, unspecified vomiting type (Primary Dx) Discharge Disposition: Home or Self [...] suspected to have Coronavirus/COVID-19? No / Unsure 10/13/2022 18:18 EST documented as of this encounter Last Filed Vital Signs Vital Sign Reading Time Taken Comments Blood Pressure 115/72 10/13/2022 192 EST Pulse 78 10/13/2022 192 EST Temperature 37.3 ??C (99.1 ??F) 10/13/2022 1800 EST Respiratory Rate 14 10/13/2022 1800 EST Oxygen Saturation 100% 10/13/2022 192 EST Inhaled Oxygen Concentration - - Weight 67.6 kg (149 lb 1.6 oz) 10/13/[address] Height 165.1 cm (5' 5) 10/13/2022 1800 EST Body Mass Index 24.81 10/13/2022 1800 EST documented in this encounter Functional Status * Are you deaf or do you have serious difficulty hearing? Answer Date of Assessment Author No 10/13/2022 18:19 EST Bharat Carreno RN documented as of this encounter Discharge Instructions * Discharge Instructions* Yue Ceja MD - 10/13/2022 18:49 EST It was a pleasure to meet you in the emergency department today You were seen for vomiting. Your evaluation was reassuring and you were treated with a nausea medication called Zofran. You were given Zofran that you can use for nausea every 4-6 hours Please try to drink fluids. It is okay if you cannot tolerate solid food as long as you are drinking liquids with calories and sugar in it Do not hesitate to return to the emergency department if you develop severe abdominal pain, are unable to drink even liquids after taking Zofran, stop having bowel movements, or have any other new orconcerning symptoms I hope you feel better soon documented in this encounter Medications at Time [...] tablet Take 1 Tablet by mouth daily. cyclobenzaprine (FLEXERIL) 5 mg tablet Take 1 Tablet by mouth daily. 10/03/2022 02/21/2023 PAXLOVID 300 mg (150 mg x 2)-100 mg tablet TAKE 3 TABLET BY MOUTH TWICE DAILY DIRECTED FOR 5 DAYS 03/12/2022 02/21/2023 documented as of this encounter Discharge Disposition Disposition Code Departure Means Destination Comment s Home or Self Skilled Nursing pt discharged to home in stable condition; boyfriend to transport. documented in this encounter ED Notes * Yue Ceja MD - 10/13/2022 182 EST Emergency Department Visit Medical Decision Making Relevant Data as of 10/13/221912Oct 13, 2022 184 Patient is a 22-year-old female who presents to the emergency department with vomiting. On arrival she is well-appearing and vital signs are notable for tachycardia and a temperature of 99.1 Fahrenheit. Physical exam demonstrates no significant abdominal tenderness, moist mucous membranes. Further evaluation includes UPT and urinalysis. The patient was given 4 mg of p.o. Zofran. UPT negative making ectopic unlikely. Urinalysis demonstrates no evidence of infection. She does have 4+ ketones consistent with recent vomiting and poor p.o. intake. I have low suspicion for appendicitis as the patient has no fevers, chills, significant right lower quadrant pain. She is not tender in the right upper quadrant making biliary disease unlikely over the epigastric region making pancreatitis unlikely. We will plan to treat with Zofran, p.o. trial and reevaluate. [EG] Relevant Data User Index [EG] Yue Ceja MD On reevaluation, the patient is feeling improved. She is tolerating p.o. intake. She is requesting Tylenol at this time for generalized body aches. She was given 1000 mg of Tylenol. Given the patient's reassuring evaluation and improvement in her symptoms, I do feel she is safe and stable for discharge home. She was given Zofran to take home. Recommend she drink plenty of fluids. Also recommend follow-up with her primary care provider. She was given strict ED return precautions. The patient voiced their understanding and was agreeable to the plan. They were stable and well-appearing at the time of discharge. Medical Decision Making Amount and/or Complexity of Data Reviewed Labs: ordered. Risk Prescription drug management. Final diagnoses: Nausea and vomiting, unspecified vomiting type Disposition: Discharged Chief complaint: Emesis HPI Emily Norton is a 22 y.o. female with asthma who presents to the ED for vomiting. Patient notes that yesterday she developed nausea and a few episodes of vomiting. At that time, she was still able totolerate p.o. intake. She woke up this morning and was unable to tolerate liquids. She tried drinking Pedialyte but threw this up. She denies any bloody or bilious emesis. No associated diarrhea or constipation. She is not having fevers or chills. No significant abdominal pain. No urinary symptoms.Patient does note that she is a daily marijuana user. Does not note that a hot shower or bath improves her symptoms. Last menstrual period was about 1 to 2 weeks ago. She did note a low-grade temperature at home. Her boyfriend's mom had a similar illness about 1 week ago. History was provided by: Patient, boyfriend, chart review Patient's pertinent PMH, FH, SH were reviewed and edited as necessary. Nursing notes reviewed. A medical screening exam was performed. Physical Exam BP 138/79 (BP Cuff Location: Left arm, BP Patient Position: Sitting) Pulse (!) 110 Temp 37.3 ??C (99.1 ??F) (Oral) Resp 14 Ht 165.1 cm (65) Wt 67.6 kg (149 lb 1.6 oz) SpO2 98% BMI 24.81 kg/m?? Physical Exam Vital Signs Vitals Reassessment?: Yes Temp: 37.3 ??C (99.1 ??F) Temp src: Oral Pulse: (!) 110 Heart Rate: (!) 110 BPM Resp: 14 SpO2: 98 % BP: 138/79 BP MAP: 98 mm Hg BP Device: BP Machine BP Patient Position: Sitting BP Cuff Location: Left arm O2 Device: None (Room air) Nursing notes and vital signs were reviewed. Constitutional: Well appearing in no acute distress HEENT: Normocephalic, atraumatic. Moist oral mucosa without apparent lesions Eye: PERRL, EOMI, clear conjunctivae Neck: Full ROM, no cervical LAD Heart: RRR w/o MRG Lungs: No respiratory distress. Clear to auscultation b/l w/o W/R/R Abdomen: Soft NT/ND, +BS Skin: No overt rashes or lesions on exposed skin Extremities: Moving spontaneously, warm, radial/DP/PT pulses 2+ b/l. Neuro: CN grossly intact, normal speech, gait wnl, strength and sensation to light touch wnl in UE/LE b/l Psych: Normal affect, no overt thought disorder Procedures Procedures YUE CEJA MD 10/13/2022 19:13 Cosigned by Alex Myers MD at 10/13/2022 19:58 EST Associated attestation - Alex Myers MD - 10/13/20221957 EST I, Alex Myers MD, performed a history and exam of this patient and discussed the case with the resident. I have reviewed and edited this note, and the documentation is consistent with my findings, assessment and plan. I fully participated in the medical decision making. documented in this encounter Plan of Treatment Not on file documented as of this encounter Procedures Procedure Name Priority Date/Time Associated Diagnosis Comments POCT URINE DIPSTICK, VISUAL READ STAT 10/13/2022 18:28 EST POCT TEST, VISUAL READ STAT 10/13/2022 18:28 EST documented in this encounter Results * POCT TEST, VISUAL READ (10/13/2022 18:28 EST) Test, Urine, POC Negative Negative Control Line Present Yes Background Clear? Yes Urine URINE SPECIMEN COLLECTION, CLEAN CATCH / Unknown 10/13/2022 18:28 EST Result [facility] Alex Myers MD POINT OF CARE TEST ORDERABLES Final Result * (ABNORMAL) POCT URINE DIPSTICK, VISUAL READ (10/13/2022 18:28 EST) Color, UA Straw Clarity, UA Clear Glucose, UA Negative . mg/dL Bilirubin, UA Negative Negative Ketones, UA 4+(A) . mg/dL Spec Grav, UA >1.030(A) 1.005 - 1.030 Blood, UA 1+(A) Negative pH, UA 5.5 4.6 - 8.0 Protein, UA 1+(A) . mg/dL Urobilinogen, UA 1.0 0.2 - 1.0 E.U./dL Nitrite, UA Negative . Leuk Esterase Negative Negative Comment Urine URINE SPECIMEN COLLECTION, CLEAN CATCH / Unknown 10/13/2022 18:28 EST Result [facility] Alex Myers MD POINT OF CARE TEST ORDERABLES Final Result documented in this encounter Visit Diagnoses Diagnosis Nausea and vomiting, unspecified vomiting type- Primary documented in this encounter Administered Medications Inactive Administered Medications - up to 3 most recent administrations Medication Order MAR Action Action Date Dose Rate Site acetaminophen (TYLENOL) tablet 975 mg 975 mg (rounded from 1,000 mg), oral, NOW X1, 1 dose, On Tue10/13/22 at 1930, STAT Given 10/13/2022 19:22 EST 975 mg ondansetron (ZOFRAN-ODT) disintegrating tablet 4 mg 4 mg, oral, NOW X1, 1 dose, On Tue10/13/22 at 1900, STAT Given 10/13/2022 18:43 EST 4 mg ondansetron 4 mg ODT tab STARTER PACK 1 Package, oral, NOW X1, 1 dose, On Tue10/13/22 at 1930, STAT Given 10/13/2022 19:22 EST 1 Package documented in this encounter Discontinued Medications Medication Sig Discontinue Reason Start Date End Da te UNABLE TO FIND 10/13/2022 documented as of this encounter Historical Medications * This list may reflect changes made after this encounter. ADVAIR DISKUS 250-50 mcg/dose diskus inhaler INHALE 1 DOSE BY MOUTH TWICE DAILY 09/10/2022 amitriptyline (ELAVIL) 25 mg tablet Take 1 Tablet by mouth at bedtime. 09/15/2022 added in this encounter Active and Recently Administered Medications Times are shown in EST. Scheduled Medication Order 10/11/2022 10/12/2022 10/13/2022 acetaminophen (TYLENOL) tablet 975 mg (COMPLETED) 975 mg (rounded from 1,000 mg), oral, NOW X1, 1 dose, On Tue10/13/22 at 1930, STAT 1922 (Given - Provid er: Belinda Booker RN) ondansetron (ZOFRAN-ODT) disintegrating tablet 4 mg (COMPLETED) 4 mg, oral, NOW X1, 1 dose, On Tue10/13/22 at 1900, STAT 1843 (Given - Provid er: Teresa Fuentes RN) ondansetron 4 mg ODT tab STARTER PACK (COMPLETED) 1 Package, oral, NOW X1, 1 dose, On Tue10/13/22 at 1930, STAT 1922 (Given - Provid er: Belinda Booker RN) documented in this encounter Orders Medications Ordered That Ike ht Not Have Been Administered Count Last Ordered Date First Ordered Date ondansetron (PF) (ZOFRAN) injection 4 mg 1 10/13/2022 documented in this encounter Additional Health Concerns Infection Onset Date Last Indicated Resolved Time R/O COVID-19 10/13/2022 10/13/2022 10/18/2022 22:1 5 EST documented as of this encounter Care Teams Academic Adviser Relationship Specialty Start Date End Date Care, [address] [address] PCP - General Family Medicine - Primary Care 06/25/21 05/16/24 documented as of this encounter
--- OUTSIDE RECORDS SUMMARY | 2024-08-18 15:26 | XMS_ITS | Clinical Summary ---
Author Organization [facility] Address [address] [place] [address] Care Team Providers Care Insurance Verification Rep Name Role Phone Edwina Naylor P[employer] Primary Care Provider + Allergies Active Allergy [...] 28, 0.25-35 mg-mcg per tablet 3 Active Medical History Medical History Date Comments Asthma COPD (chronic obstructive pulmonary disease) ([facility]) Social History Tobacco Use Types Packs/Day Years [...] on file Sexual Orientation Not on file Obstetrics History Last Filed Vital Signs Vital Sign Reading [...] Body Mass Index 37.44 05/17/2024 0932 EDT Plan of Treatment Health Maintenance Due Date Last Done Comments Hepatitis C Screen 2002 Pneumococcal Immunization (1 of 2 - PCV) 2008 Hepatitis B Vaccine (1 of 3 - 19+ 3-dose series) 03/08 COVID-19 Vaccine (1 - season) 2024 Care Teams Insurance Verification Rep Relationship Specialty Start Date End Date Edwina Naylor NP [address] [place] [phone] PCP - General Family Medicine - Primary Care 05/17/24
--- OUTSIDE RECORDS SUMMARY | 2024-08-18 15:26 | XMS_ITS | Encounter Summary ---
Author Organization [facility] Address [address] [place] [address] Care Team Providers Care Offal Baler Name Role Phone Edwina Naylor TRAVELIFT OPERATOR Primary Care Provider + Encounter Details Date Type Department Care Team (Latest Contact Info) Description 05/17/2024 Travel Social History Tobacco Use Types Packs/Day [...] Sanz RN documented as of this encounter Plan of Treatment Not on file documented as of this encounter Visit Diagnoses Not on filedocumented in this encounter Additional Health Concerns Infection Onset Date Last Indicated Resolved Time R/O COVID-19 05/17/2024 05/17/2024 05/17/2024 10:4 1 EDT documented as of this encounter Care Teams Offal Baler Relationship Specialty Start Date End Date Edwina Naylor NP [address] [place] [phone] PCP - General Family Medicine - Primary Care 05/17/24 documented as of this encounter
--- OUTSIDE RECORDS SUMMARY | 2024-08-18 15:26 | XMS_ITS | Encounter Summary ---
Author Organization [facility] Address [address] [place] [address] Care Team Providers Care Geotechnicial Properties Technician Name Role Phone [facility] Primary Care Provider Reason for Visit * Reason Comments Chest Pain Constant chest pain that feels like tightness and stabbing since this morning wth nausea. Hx of asthma and same sensation in the past. Trying nebulizer and its making her shaky. No appetite x months. Encounter Details Date Type Department Care Team (Late st Contact Info) Description 07/10/2022 16:45 EST - 07/10/2022 19:01 EST Emergency [facility] Emergency Department [address] [place] [address] Yakov Keller PA-C [address] [place] [address] RSV bronchitis (Primary Dx) Discharge Disposition: Home or Self [...] Sign Reading Time Taken Comments Blood Pressure 110/75 07/10/2022 1900 EST Pulse 98 07/10/2022 1900 EST Temperature 36.7 ??C (98 ??F) 07/10/2022 1900 EST Respiratory Rate 14 07/10/2022 1900 EST Oxygen Saturation 98% 07/10/2022 1900 EST Inhaled Oxygen Concentration - - Weight 74.9 kg (165 lb 1.6 oz) 07/10/[address] Height 166.4 cm (5' 5.5) 07/10/2022 1644 EST Body Mass Index 27.06 07/10/2022 1644 EST documented in this encounter Functional Status * Are you deaf or do you have serious difficulty hearing? Answer Date of Assessment Author No 07/10/2022 16:45 EST Jeri Garza RN documented as of this encounter Discharge Instructions * Discharge Instructions* Yakov Keller PA-C - 07/10/2022 18:54 EST You were seen in the emergency department with a cough and asthma exacerbation,. You are not wheezing in the emergency department and your oxygen saturation is reassuring. You have tested positive for RSV, use your inhalers as needed in the coming days, you can also use the Tessalon Perles as a cough suppressant, you can take additional [id number] cough and cold remedies for comfort, rest and stay well-hydrated. If you develop significant shortness of breath or your oxygen saturation is persistently below 90 return to the emergency department, this would be expected to last as long as 1 week. * Attachments The following attachments cannot be sent through Care Everywhere. * Bronchitis (Syriac) * URI (Upper Respiratory Infection) (Syriac) documented in this encounter Medications at Time [...] Refills Last Filled Start Date End Date benzonatate (TESSALON) 100 mg capsule Take 1 Capsule by mouth 3 times daily as needed for up to 7 days for Cough. 21 Capsule 07/10/2022 2 documented in this encounter Discharge Disposition Disposition Code Departure Means Destination Home or Self Alf documented in this encounter ED Notes * aYkov Keller PA-C - 07/10/2022 190 EST Emergency Department Visit Assessment and ED Course Emily is a 22-year-old female with a history of asthma who presents to the emergency department with cough and tightness in her chest increasing over the past 3 to 4 days. On exam she is well-appearing, no active wheezing, SPO2 of 98, vital signs otherwise reassuring. RSV test returned as positive. She is also complaining of an unwanted weight loss over the past 4 months, to evaluate this furtherbasic lab evaluation plus thyroid cascade was obtained, this is all essentially noncontributory, encourage seeing PCP to have this chronic issue evaluated further. She reports that she does not need refills on her inhalers or her nebulizer solution, she had some relief with Tessalon Perles and a prescription was provided. See discharge instructions for patient education/return precautions Final diagnoses: RSV bronchitis Disposition: Discharged Chief complaint: Cough HPI Emily is a 22-year-old female with a history of asthma who presents to the emergency department with chief complaint of cough with tightness in her chest and nausea increasing over the past 3 to 4 days. Does admit to some mild shortness of breath, feels that her nebulizer makes her shaky. She is also complaining of some decreased appetite over the past 4 months with a 40 pound weight loss. She describes this as an unwanted weight loss, denies vomiting, denies abdominal pain. She does describe significant fatigue over the same time.. History was provided by: Patient Patient's pertinent PMH, FH, SH were reviewed and edited as necessary. ROS A focused review of systems was performed. Pertinent positives and negatives as noted in HPI. Physical Exam BP 110/75 (BP Cuff Location: Right arm, BP Patient Position: Sitting) Pulse 98 Temp 36.7 ??C (98 ??F) Resp 14 Ht 166.4 cm (65.5) Wt 74.9 kg (165 lb 1.6 oz) SpO2 98% BMI 27.06 kg/m?? A medical screening exam was performed. Physical Exam Vitals and nursing note reviewed. Constitutional: General: She is not in acute distress. Appearance: She is well-developed and well-nourished. HENT: Nose: Nose normal. Mouth/Throat: Mouth: Mucous membranes are moist. Pharynx: Oropharynx is clear. Eyes: Conjunctiva/sclera: Conjunctivae normal. Cardiovascular: Rate and Rhythm: Normal rate and regular rhythm. Heart sounds: Normal heart sounds. Pulmonary: Effort: Pulmonary effort is normal. Breath sounds: Normal breath sounds. Comments: Lungs CTA, no wheezing. Abdominal: General: Bowel sounds are normal. Palpations: Abdomen is soft. Tenderness: There is no abdominal tenderness. Musculoskeletal: General: Normal range of motion. Cervical back: Normal range of motion and neck supple. Skin: General: Skin is warm and dry. Neurological: Mental Status: She is alert and oriented to person, place, and time. Cranial Nerves: No cranial nerve deficit. Psychiatric: Mood and Affect: Mood and affect normal. CLINICAL CALCULATOR RESULTS PERC Rule for Pulmonary Embolism Age >= 50: No Heart Rate >= 100: No O2 Sat on room air < 95%: No Unilateral leg swelling: No Hemoptysis: No Recent surgery or trauma: No Prior PE or DVT: No Hormone use: No PERC Score: 0 Wells' Criteria for Pulmonary Embolism Clinical signs and symptoms of DVT: No PE is primary diagnosis -or- equally likely: No Heart Rate > 100: No Immobilization at least 3 days -or- surgery in the previous 4 weeks: No Previous, objectively diagnosed PE or DVT: No Hemoptysis: No Malignancy with treatment within 6 months or palliative: No WELLS-PE Score: 0 Laboratory data was reviewed and independently interpreted. Procedures Procedures documented in this encounter Plan of Treatment Not on file documented as of this encounter Procedures Procedure Name Priority Date/Time Associated Diagnosis Comments POCT URINE DIPSTICK, VISUAL READ STAT 07/10/2022 18:18 EST POCT TEST, VISUAL READ STAT 07/10/2022 18:18 EST ZZCOVID-19 [facility] (TESTING ONLY) STAT 07/10/2022 17:28 EST COVID-19 TESTING STAT 07/10/2022 17:2 8 EST ZZHN INFLUENZA A AND B, RSV PCR STAT 07/10/2022 17:28 EST THYROID CASCADE STAT 07/10/2022 17:28 EST MONO-TEST STAT 07/10/2022 17:28 EST COMPLETE BLOOD COUNT AND DIFFERENTIAL STAT 07/10/2022 17:28 EST C REACTIVE PROTEIN STAT 07/10/2022 17 :28 EST COMPREHENSIVE METABOLIC PANEL (CMP) STAT 07/10/2022 17:28 EST documented in this encounter Results * POCT TEST, VISUAL READ (07/10/2022 18:18 EST) Test, Urine, POC Negative Negative Control Line Present Yes Background Clear? Yes Urine URINE SPECIMEN COLLECTION, CLEAN CATCH / Unknown 07/10/2022 18:18 EST us Yakov Keller PA-C POINT OF CARE TEST ORDERABLE S Final Result * (ABNORMAL) POCT URINE DIPSTICK, VISUAL READ (07/10/2022 18:18 EST) Color, UA Yellow Clarity, UA Clear Glucose, UA Negative . mg/dL Bilirubin, UA Negative Negative Ketones, UA Trace(A) . mg/dL Spec Grav, UA 1.020 1.005 - 1.030 Blood, UA Negative Negative pH, UA 7.0 4.6 - 8.0 Protein, UA Negative . mg/dL Urobilinogen, UA 0.2 0.2 - 1.0 E.U./dL Nitrite, UA Negative . Leuk Esterase Negative Negative Comment Urine URINE SPECIMEN COLLECTION, CLEAN CATCH / Unknown 07/10/2022 18:18 EST Yakov Keller PA-C POINT OF CARE TEST ORDERABLE S Final Result * COVID-19 [facility] (TESTING ONLY) (07/10/2022 17:28 EST) Swab ENTIRE NASOPHARYNX / Unknown Swab / Unknown 07/10/2022 17:28 EST 07/10/2022 17:37 EST Yakov Keller PA-C MICROBIOLOGY - GENERAL ORDER MAICOL Final Result Performing Organization Address City/[facility]/ZIP Co de Phone Number [facility] [address] [place] [address] * COVID-19 TESTING (07/10/2022 17:28 EST) COVID-19 rt-PCR Result Negative Negative 07/10/2022 18:23 EST [facility] Performing Lab Cepheid GeneXpert [facility] 07/10/2022 18:23 EST [facility] Swab ENTIRE NASOPHARYNX / Unknown Swab / Unknown 07/10/2022 17:28 EST 07/10/2022 17:37 EST Yakov Keller PA-C MICROBIOLOGY - GENERAL ORDER MAICOL Final Result Performing Organization Address City/[facility]/ZIP Co de Phone Number [facility] [address] [place] [address] * (ABNORMAL) INFLUENZA A AND B,RSV PCR (07/10/2022 17:28 EST) Pathologist [facility] FLU A RNA Result (FLARES) Negative Negative 07/10/2022 18:23 EST [facility] FLU B RNA Result (FLBRES) Negative Negative 07/10/2022 18:23 [facility] RSV RNA Result (RSVRES) Positive(A) Negative 07/10/2022 18:23 [facility] Swab ENTIRE NASOPHARYNX / Unknown Swab / Unknown 07/10/2022 17:28 EST 07/10/2022 17:37 EST Yakov Keller PA-C MICROBIOLOGY - GENERAL ORDER MAICOL Final Result Performing Organization Address [facility] Co de Phone Number [facility] [address] [place] [address] * THYROID CASCADE (07/10/2022 17:28 EST) [facility] TSH 0.87 0.47 - 4.68 mIU/L 07/10/2022 18:32 EST [facility] Blood VENOUS BLOOD / Unknown Venipuncture / Unknown 07/10/2022 17:28 EST 07/10/2022 17:31 EST Narrative [facility] - 07/10/2022 18:32 EST NOTE: The results of this assay can be falsely lowered due to the consumption of Biotin. Yakov Keller PA-C CHEMISTRY & BLOOD GAS ORDERA BLES Final Result Performing Organization Address City/[facility]/ZIP Co de Phone Number [facility] [address] [place] [address] * MONO-TEST (07/10/2022 17:28 EST) [facility] Test Negative Negative 07/10/2022 17:50 EST [facility] Blood VENOUS BLOOD / Unknown Venipuncture / Unknown 07/10/2022 17:28 EST 07/10/2022 17:31 [facility] CHEMISTRY & BLOOD GAS ORDERA BLES Final Result [facility] [address] [place] [address] * (ABNORMAL) C REACTIVE PROTEIN (07/10/2022 17:28 EST) Pathologist [facility] C-Reactive Protein 35.3(H) <10.0 mg/L 07/10/2022 18:00 [facility] Blood VENOUS BLOOD / Unknown Venipuncture / Unknown 07/10/2022 17:28 EST 07/10/2022 17:31 EST Yakov Keller PA-C CHEMISTRY & BLOOD GAS ORDERA BLES Final Result Performing Organization Address City/[facility]/ZIP Co de Phone Number [facility] [address] [place] [address] * (ABNORMAL) COMPREHENSIVE METABOLIC PANEL (CMP) (07/10/2022 17:28 EST) Pathologist [facility] Sodium 139 136 - 145 mmol/L 07/10/2022 18:00 [facility] Potassium 3.6 3.5 - 5.0 mmol/L 07/10/2022 18:00 [facility] Chloride 108 96 - 110 mmol/L 07/10/2022 18:00 [facility] CO2 Total 21(L) 22 - 32 mmol/L 07/10/2022 18:00 [facility] Glucose 89 70 - 100 mg/dL 07/10/2022 18:00 [facility] BUN 5(L) 10 - 26 mg/dL 07/10/2022 18:00 [facility] Creatinine 0.49(L) 0.52 - 1.04 mg/dL 07/10/2022 18:00 [facility] eGFR 138 >60 mL/min/1.7 3m2 07/10/2022 18:00 [facility] Total Protein 7.4 6.3 - 8.2 g/dL 07/10/2022 18:00 [facility] Albumin 4.2 3.4 - 4.9 g/dL 07/10/2022 18:00 [facility] Alkaline Phosphatase 79 38 - 126 U/L 07/10/2022 18:00 [facility] AST 28 15 - 46 U/L 07/10/2022 18:00 [facility] ALT 28 <35 U/L 07/10/2022 18:00 [facility] Bilirubin, Total 0.8 <1.4 mg/dL 07/10/20 18:00 [facility] Calcium 9.2 8.5 - 10.5 mg/dL 07/10/2022 18:00 [facility] Albumin/Globulin Ratio 1.3 1.0 - 2.5 07/10/2022 18:00 [facility] Anion Gap 10 5 - 14 07/10/2022 18:00 [facility] Blood VENOUS BLOOD / Unknown Venipuncture / Unknown 07/10/2022 17:28 EST 07/10/2022 17:31 EST us Yakov Keller PA-C CHEMISTRY & BLOOD GAS ORDERA BLES Final Result Performing Organization Address City/State/[facility] Co de Phone Number [facility] [address] [place] [address] * (ABNORMAL) COMPLETE BLOOD COUNT AND DIFFERENTIAL (07/10/2022 17:28 EST) WBC 5.55 4.00 - 12.40 K/cmm 07/10/2022 17:34 [facility] RBC 4.44 3.86 - 5.04 M/cmm 07/10/2022 17:34 [facility] Hemoglobin 14.6 11.6 - 15.2 gm/dL 07/10/2022 17:34 [facility] HCT 41.4 34.9 - 44.4 % 07/10/2022 17:34 [facility] MCV 93 81 - 98 fl 07/10/2022 17:34 [facility] MCH 32.9 26.7 - 33.3 pg 07/10/2022 17:34 [facility] MCHC 35.3 32.1 - 35.9 gm/dL 07/10/2022 17:34 [facility] RDW-CV 11.7 <14.7 % 07/10/2022 17:34 [facility] RDW-SD 39.8 <50.4 fl 07/10/2022 17:34 [facility] PLT 158 141 - 377 K/cmm 07/10/2022 17:34 [facility] MPV 9.3(L) 9.5 - 12.7 fl 07/10/2022 17:34 [facility] % Neutrophils 64.0 % 07/10/2022 17:34 [facility] % Lymphocytes 25.4 % 07/10/2022 17:34 [facility] % Monocytes 7.7 % 07/10/2022 17:34 [facility] % Eosinophils 2.3 % 07/10/2022 17:34 [facility] % Basophils 0.4 % 07/10/2022 17:34 [facility] % Immature Grans 0.2 % 07/10/20 17:34 [facility] Absolute Neutrophils 3.55 2.20 - 8.85 K/cmm 07/10/2022 17:34 [facility] Absolute Lymphocytes 1.41 1.09 - 3.30 K/cmm 07/10/2022 17:34 [facility] Absolute Monocytes 0.43 0.10 - 0.80 K/cmm 07/10/2022 17:34 [facility] Absolute Eosinophils 0.13 0.03 - 0.61 K/cmm 07/10/2022 17:34 [facility] ABS Basophils 0.02 0.01 - 0.11 K/cmm 07/10/2022 17:34 [facility] Absolute Immature Grans 0.01 0.00 - 0.06 K/cmm 07/10/2022 17:34 [facility] Type of Differential: Auto 07/10/2022 17:34 [facility] Blood VENOUS BLOOD / Unknown Venipuncture / Unknown 07/10/2022 17:28 EST 07/10/2022 17:31 EST Yakov Keller PA-C PACKAGES & DNA PROBE ORDERAB LES Final Result [facility] [address] [place] [address] documented in this encounter Visit Diagnoses Diagnosis RSV bronchitis- Primary Acute bronchitis documented in this encounter Administered Medications Inactive Administered Medications - up to 3 most recent administrations Medication Order MAR Action Action Date Dose Rate Site benzonatate (TESSALON) capsule 200 mg 200 mg, oral, NOW X1, 1 dose, On 07/10/22 at 1730, Routine Given 07/10/2022 17:28 EST 200 mg documented in this encounter Active and Recently Administered Medications Times are shown in EST. Scheduled Medication Order 07/08/2022 07/09/2022 07/10/2022 benzonatate (TESSALON) capsule 200 mg (COMPLETED) 200 mg, oral, NOW X1, 1 dose, On 07/10/22 at 1730, Routine 1728 (Given - Provid er: Carmen Oconnor) documented in this encounter Orders Medications Ordered That Ike ht Not Have Been Administered Count Last Ordered Date First Ordered Date benzonatate (TESSALON) capsule 200 mg 1 documented in this encounter Additional Health Concerns Infection Onset Date Last Indicated Resolved Time R/O COVID-19 07/10/2022 07/10/2022 07/15/2022 22:1 5 EST RSV 07/10/2022 07/10/2022 07/20/2022 22:1 5 EST documented as of this encounter Care Teams Geotechnicial Properties Technician Relationship Specialty Start Date End Date Care, [address] [address] PCP - General Family Medicine - Primary Care 06/25/21 05/16/24 documented as of this encounter
--- OUTSIDE RECORDS SUMMARY | 2024-08-18 15:26 | XMS_ITS | Encounter Summary ---
Author Organization [facility] Address [address] [place] [address] Care Team Providers Care Human Resources Office Assistant Name Role Phone [facility] Primary Care Provider Encounter Details Date Type Department Care Team (Latest Contact Info) Description 10/13/2022 Travel Social History Tobacco Use Types Packs/Day [...] 18:18 EST documented as of this encounter Functional Status * Are you deaf or do you have serious difficulty hearing? Answer Date of Assessment Author No 10/13/2022 18:19 EST Bharat Carreno RN documented as of this encounter Plan of Treatment Not on file documented as of this encounter Visit Diagnoses Not on filedocumented in this encounter Additional Health Concerns Infection Onset Date Last Indicated Resolved Time R/O COVID-19 10/13/2022 10/13/2022 10/18/2022 22:1 5 EST documented as of this encounter Care Teams Human Resources Office Assistant Relationship Specialty Start Date End Date [facility] [address] [place] [address] PCP - General Family Medicine - Primary Care 06/25/21 05/16/24 documented as of this encounter
--- OUTSIDE RECORDS SUMMARY | 2024-08-18 15:27 | XMS_ITS | Encounter Summary ---
Author Organization [facility] Address [address] [place] [address] Care Team Providers Care Lithographed Plate Inspector Name Role Phone Justus Sommers MD Primary Care Provider [phone] Encounter Details Date Type Department Care Team (Late st Contact Info) Description 08/01/2017 Historical Results Only [facility] - [facility] - Main [place] [address], [place] [id number] Yue Pastrana, SOLAR INSTALLER PV ENP [address] [place] [address] Social History Tobacco Use Types Packs/Day Years Used Date Smoking Tobacco: Never Assessed Comments Unknown Sex and Gender Information Value Date Recorded Sex Assigned at Not on file Legal Sex Female 18:31 EST Gender Identity Not on file Sexual Orientation Not on file documented as of this encounter Plan of Treatment Not on file documented as of this encounter Procedures Procedure Name Priority Date/Time Associated Diagnosis Comments ETHYL ALCOHOL - [facility] Routine 08/01/2017 20:14 EST COMPLETE BLOOD COUNT WITH DIFFERENTIAL (AUTO) Routine 08/01/2017 20:14 EST TSH Routine 08/01/2017 20:14 EST COMPREHENSIVE METABOLIC PANEL (CMP) Routine 08/01/2017 20:14 EST documented in this encounter Results * ETHYL ALCOHOL - [facility] (08/01/2017 20:14 EST) Pathologist [facility] Emergency Department ETHYL ALCOHOL - [facility] <10.0 <10 mg/dL 08/01/2017 20:49 [facility] 08/01/2017 20:1 4 EST 08/01/2017 20:19 EST Narrative [facility] - 08/01/2017 20:49 EST Does PT Have a Latex Allergy? NO us Yue Pastrana SOLAR INSTALLER PV ENP CHEMISTRY & BLOOD GAS STEVIE QUIJANO Final Result [facility] * (ABNORMAL) COMPREHENSIVE METABOLIC PANEL (CMP) (08/01/2017 20:14 EST) [facility] Albumin % 4.0 3.7 - 5.6 g/dL 08/01/2017 20:49 [facility] ALKALINE PHOSPHATASE - [facility] 112 62 - 209 U/L 08/01/2017 20:49 [facility] BILIRUBIN TOTAL 0.5 <1.0 mg/dL 7 20:49 [facility] BUN - [facility] 9 8 - 21 mg/dL 08/01/2017 20:49 [facility] CALCIUM - [facility] 9.6 9.2 - 10.7 mg/dL 08/01/2017 20:49 [facility] Chloride 104 96 - 110 mmol/L 08/01/2017 20:49 [facility] CO2 Total 23 22 - 32 mEq/L 08/01/2017 20:49 [facility] CREATININE 0.71 0.50 - 1.00 mg/dL 08/01/2017 20:49 [facility] Anion Gap 16 0 - 18 08/01/2017 20:49 [facility] GLUCOSE - [facility] 120(H) 70 - 100 mg/dL 08/01/2017 20:49 [facility] Potassium 3.8 3.3 - 4.6 mEq/L 08/01/2017 20:49 [facility] Sodium 143 136 - 145 mEq/L 08/01/2017 20:49 [facility] TOTAL PROTEIN - [facility] 7.6 6.3 - 8.6 gm/dL 08/01/2017 20:49 [facility] SGOT/AST - CV 23 10 - 30 U/L 08/01/2017 20:49 [facility] SGPT/ALT - [facility] 31 <31 U/L 7 20:49 [facility] 08/01/2017 20:1 4 EST 08/01/2017 20:19 EST Narrative [facility] - 08/01/2017 20:49 EST Does PT Have a Latex Allergy? NO us Yue BROOKEP ENP CHEMISTRY & BLOOD GAS ORDE RABLES Final Result [facility] * TSH (08/01/2017 20:14 EST) Pathologist [facility] Emergency Department THYROID STIM HORMONE - [facility] 1.05 0.46 - 4.68 uIU/ml 08/01/2017 21:16 [facility] 08/01/2017 20:1 4 EST 08/01/2017 20:19 EST Narrative [facility] - 08/01/2017 21:16 EST Does PT Have a Latex Allergy? NO us Yue WOOD ENP CHEMISTRY & BLOOD GAS ORDE RABLES Final Result [facility] * (ABNORMAL) COMPLETE BLOOD COUNT WITH DIFFERENTIAL (AUTO) (08/01/2017 20:14 EST) ABSOLUTE NEUTROPHIL COUN - [facility] 7.51(H) 1.7 - 7.0 10e3/ul 08/01/2017 20:24 [facility] BASO # - [facility] 0.02 0.0 - 0.3 10e3/uL 08/01/2017 20:24 [facility] BASO % - [facility] 0 0 - 2 % 08/01/2017 20:24 [facility] EOS # - [facility] 0.10 0.05 - 0.5 10e3/uL 08/01/2017 20:24 [facility] EOS % - [facility] 1 0 - 5 % 08/01/2017 20:24 [facility] GRAN % - [facility] 72 40 - 80 % 08/01/2017 20:24 [facility] HEMATOCRIT - [facility] 43.6 34.0 - 47.0 % 08/01/2017 20:24 [facility] HEMOGLOBIN - [facility] 15.3 11.2 - 15.7 g/dl 08/01/2017 20:24 [facility] IG# - [facility] 0.03 0 - 0.07 10e3/uL 08/01/2017 20:24 [facility] IG% - [facility] 0.3 0 - 0.9 % 08/01/2017 20:24 [facility] LYMPH # - [facility] 2.33 0.9 - 2.9 10e3/uL 08/01/2017 20:24 [facility] LYMPH% - [facility] 22 20 - 40 % 08/01/2017 20:24 [facility] MEAN CORPUSCULAR HGB - [facility] 32.5 26 - 34 pg 08/01/2017 20:24 [facility] MEAN CORPUSCULAR HGB CONC - [facility] 35.1 31 - 36 g/dL 08/01/2017 20:24 [facility] MEAN CELL VOLUME - [facility] 92.6 77 - 100 fl 08/01/2017 20:24 [facility] MONO # - [facility] 0.42 0.3 - 0.9 10e3/uL 08/01/2017 20:24 [facility] MONO% - [facility] 4 0 - 12 % 08/01/2017 20:24 [facility] PLATELET COUNT 227 150 - 400 10e3/ul 08/01/2017 20:24 [facility] RED BLOOD COUNT - [facility] 4.71 3.8 - 5.2 10e6/ul 08/01/2017 20:24 [facility] RED CELL DISTRI WIDTH - [facility] 12.2 11.8 - 15.6 % 08/01/2017 20:24 EST [facility] WHITE BLOOD COUNT - [facility] 10.4 3.5 - 10.5 10e3/ul 08/01/2017 20:24 EST [facility] 08/01/2017 20:1 4 EST 08/01/2017 20:20 EST Narrative [facility] - 08/01/2017 20:24 EST Does PT Have a Latex Allergy? NO us Yue Pastrana SOLAR INSTALLER PV ENP HEMATOLOGY & PF4 ORDERABLE S Final Result [facility] documented in this encounter Visit Diagnoses Not on filedocumented in this encounter Care Teams Lithographed Plate Inspector Relationship Specialty Start Date End Date Justus Sommers MD PCP - General 06/22/15 07/10/19 documented as of this encounter
--- OUTSIDE RECORDS SUMMARY | 2024-08-18 15:27 | XMS_ITS | Encounter Summary ---
Author Organization [facility] Address [address] [place] [address] Care Team Providers Care Tier Lift Operator Name Role Phone [facility] Primary Care Provider Reason for Visit * Reason Comments Back Pain pt c/o low back pain for a few days. no known injury. 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 Encounter Details Date Type Department Care Team (Late st Contact Info) Description 11/03/2021 10:30 EDT - 11/03/2021 13:08 EDT Emergency [facility] Emergency Department [address] [place] [address] Marian Rosales MD [address] [place] [address] Acute midline low back pain with left-sided sciatica (Primary Dx) Discharge Disposition: Home or Self Care Social History Tobacco Use Types Packs/Day Years Used Date Smoking Tobacco: Every Day Smokeless Tobacco: Never Comments:vapes, no cigarette s Alcohol Use Standard Drinks/Week Comments Never 0 (1 standard drink = 0.6 oz pur e alcohol) Comments Unknown Sex and Gender Information Value Date Recorded Sex Assigned at Not on file Legal Sex Female 18:31 EST Gender Identity Not on file Sexual Orientation Not on file COVID-19 Exposure Response Date Recorded In the last 10 days, have yo u been in contact with someone who was confirmed or suspected to have Coronavirus/COVID-19? No / Unsure 11/03/2021 10:27 EDT documented as of this encounter Last Filed Vital Signs Vital Sign Reading Time Taken Comments Blood Pressure 108/62 11/03/2021 1026 EDT Pulse 78 11/03/2021 1113 EDT Temperature 36.2 ??C (97.1 ??F) 11/03/2021 1026 EDT Respiratory Rate 16 11/03/2021 1026 EDT Oxygen Saturation 99% 11/03/2021 1026 EDT Inhaled Oxygen Concentration - - Weight 91.9 kg (202 lb 11.2 oz) 11/03/2021 1026 EDT Height 165.1 cm (5' 5) 11/03/2021 1026 EDT Body Mass Index 33.73 11/03/2021 1026 EDT documented in this encounter Discharge Instructions * Attachments The following attachments cannot be sent through Care Everywhere. * Low Back Pain: General Info (Austrian) * Back Pain Needs Time - Activity - and Medicine: Video (Austrian) * Back Pain: Relief: General Info (Austrian) * Back Pain: 5 Ways to Take Care of Yourself: Video (Austrian) documented in this encounter Medications at Time of Discharge albuterol 90 mcg/actuation inhaler Inhale 2 Puffs as directed every 4 hours as needed for Wheezing. cetirizine (ZYRTEC) 10 mg tablet Take 1 Tablet by mouth daily. montelukast (SINGULAIR) 10 mg tablet Take 1 Tablet by mouth daily. methocarbamoL (ROBAXIN) 750 mg tablet Take 2 Tablets by mouth 3 times daily for 3 days. 18 Tablet 11/03/2021 11/06/2021 UNABLE TO FIND 10/13/2022 documented as of this encounter Ordered Prescriptions Prescription Sig Dispense Quantity Refills Last Filled Start Date End Date methocarbamoL (ROBAXIN) 750 mg tablet Take 2 Tablets by mouth 3 times daily for 3 days. 18 Tablet 11/03/2021 2 documented in this encounter Discharge Disposition Disposition Code Departure Means Destination Home or Self Alf documented in this encounter ED Notes * Marian Rosales MD - 11/03/2021 1132 EDT [facility] EMERGENCY DE[facility] Patient Name: Emily Norton Visit Date: 11/03/2021 Mode of Arrival:Walk-in Primary Care Provider: [facility] ED ASSESSMENT & TREATMENT SUMMARY Chief Complaint Patient presents with ??? Back Pain pt c/o low back pain for a few days. no known injury. 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 female presenting with new onset low back pain in the setting ofa new job which is more physically demanding. No red flags for cauda equina on history or physical.Has midline low back tenderness. Some mild flexion weakness at knee on L. Positive SLR on left. Diminished BL patellar reflexes. XR lumbar spine negative for fracture. Has some spondylosis and scoliosis. No abnormalities on XR sacrum/coccyx. Was given IM toradol and will be discharged with prescription for robaxin. PT referral placed. To f/u with PCP. Strict return precautiosn given and all questions answered. Final Diagnosis Final diagnoses: Acute midline low back pain with left-sided sciatica Disposition The patient was discharged home. Diagnosis, lab results, other ancillary study results and discharge instructions/medications and plan for followup were discussed with the pt and/or the family. Indications for emergent return and re- evaluation were also explained. All questions were answered and the pt/family understands and agrees with the current plan. Discharge Medications Robaxin 1500mg PO TID x 3 days Follow Up Care [facility] Emergency Department [address] [facility] [address] As needed. Follow up with PT and with PCP within next week. EXTENDED ED RECORD History of Present Illness (Complete) Emily Norton is a pleasant 21 y.o. female in good health presenting to the ED with low back pain that began about 2 days ago. She doesn't remember any preceding trauma, but noticed the pain in the early part of the day. 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 The pain was manageable yesterday, but worsened yesterday evening and into today. She took ibuprofen with minimal relief. She is also using ice. The pain is in the midline of the low back, but radiates through the left buttock and into the left thigh. She has noticed some urinary frequency but no fevers or chills or dysuria. No urinary incontinence or saddle anesthesia. She feels like she has somewhat of a limping gait on the left side. She also reports injuring her coccyx a few months ago and has some residual pain there. She reports that her aunt had some sort of condition where she easily fractured her low back. She is not clear if it is due to osteopenia/osteoporosis or due to a spinal condition itself. HPI Data Reviewed this visit Allergies Allergen Reactions ??? Amoxicillin Hives No current facility-administered medications for this encounter. Current Outpatient Medications Medication Sig Dispense Refill ??? albuterol 90 mcg/actuation inhaler Inhale 2 Puffs as directed every 4 hours as needed for Wheezing. ??? cetirizine (ZYRTEC) 10 mg tablet Take 10 mg by mouth daily. ??? methocarbamoL (ROBAXIN) 750 mg tablet Take 2 Tablets by mouth 3 times daily for 3 days. 18 Tablet 0 ??? montelukast (SINGULAIR) 10 mg tablet Take 10 mg by mouth daily. ??? UNABLE TO FIND Review of Symptoms Review of Systems Constitutional: Negative for chills and fever. Genitourinary: Positive for frequency. Negative for dysuria. Musculoskeletal: Positive for back pain. Neurological: Negative for sensory change. A 10-point review of systems was performed. The historian answered negative to all questions with the exceptions of those explicitly detailed as positives in the HPI. Pertinent negatives are also explicitly stated. Physical Exam Vital Signs Vital Signs Temp: 36.2 ??C (97.1 ??F) Temp src: Temporal Pulse: 78 Heart Rate: 78 BPM Resp: 16 SpO2: 99 % BP: 108/62 O2 Device: None (Room air) Nursing notes and vital signs were reviewed. Physical Exam Vitals and nursing note reviewed. Constitutional: General: She is not in acute distress. Appearance: Normal appearance. She is not ill-appearing or toxic-appearing. HENT: Head: Normocephalic and atraumatic. Right Ear: External ear normal. Left Ear: External ear normal. Eyes: Extraocular Movements: Extraocular movements intact. Conjunctiva/sclera: Conjunctivae normal. Cardiovascular: Rate and Rhythm: Normal rate and regular rhythm. Pulses: Normal pulses. Heart sounds: Normal heart sounds. Pulmonary: Effort: Pulmonary effort is normal. No respiratory distress. Breath sounds: Normal breath sounds. Abdominal: Palpations: Abdomen is soft. Tenderness: There is no abdominal tenderness. Musculoskeletal: Cervical back: Normal range of motion and neck supple. Comments: Midline lumbar spinal tenderness and some mild paraspinal tenderness in lumbar region. Positive straight leg raise on left. Skin: General: Skin is warm and dry. Neurological: Mental Status: She is alert and oriented to person, place, and time. Comments: Sensation normal in BL LEs. She has normal extension 5/5/ bilaterally in both proximal and distal distributions. She has wome weakness w flexion at the knee on the left. Normal flexion BL at foot/ankle/FHL. Diminished BL patellar and achilles reflexes. Psychiatric: Mood and Affect: Mood normal. Behavior: Behavior normal. Procedures Procedures Data Interpretation/Results Laboratory results independently reviewed, significant for: Labs Reviewed POCT URINE DIPSTICK, VISUAL READ - Abnormal Result Value Status Color, UA Yellow Final Clarity, UA Clear Final Glucose, UA Negative Final Bilirubin, UA Negative Final Ketones, UA Negative Final Spec Grav, UA 1.025 Final Blood, UA Negative Final pH, UA 7.0 Final Protein, UA Trace (*) Final Urobilinogen, UA 0.2 Final Nitrite, UA Negative Final Leuk Esterase Negative Final Comment POCT TEST, VISUAL READ - Normal Test, Urine, POC Negative Final Control Line Present Yes Final Background Clear? Yes Final Imaging obtained was reviewed and independently interpreted: XR SACRUM COCCYX 2 OR MORE VIEWS Final Result No fracture is identified. If there is continued clinical concern for occult fracture then considerfollow-up radiograph or further assessment with MRI as clinically warranted. XR LUMBAR SPINE 2-3 VIEWS Final Result Mild scoliosis and degenerative spondylosis of the lumbar spine. Medical Decision Making and Patient Care Timeline [facility] Final diagnoses: Acute midline low back pain with left-sided sciatica Disposition The patient was discharged home. Disposition decisions were made weighing risks and benefits of hospitalization vs. outpatient treatment, the risk for further decompensation, and the patient???s wishes. The patient was stable, improved, or requested discharge. Prior to discharge my usual and customaryreturn precautions were reviewed with the patient and/or family. This included follow-up instructions and reasons to return to the Emergency Department if condition worsens, does not improve as expected, or other new concerns arise. documented in this encounter Plan of Treatment Not on file documented as of this encounter Procedures Procedure Name Priority Date/Time Associated Diagnosis Comments XR SACRUM COCCYX 2 OR MORE VIEWS STAT 11/03/2021 12:15 EDT XR LUMBAR SPINE 2-3 VIEWS STAT 11/03/2021 12:15 EDT POCT URINE DIPSTICK, VISUAL READ STAT 11/03/2021 11:59 EDT POCT TEST, VISUAL READ STAT 11/03/2021 11:58 EDT documented in this encounter Results * XR SACRUM COCCYX 2 OR MORE VIEWS (11/03/2021 12:15 EDT) Anatomical Region Laterality Modality Spine Computed Radiogr aphy 11/03/2021 12:2 9 EDT Impressions 11/03/2021 12:29 EDT No fracture is identified. If there is continued clinical concern for occult fracture then consider follow-up radiograph or further assessment with MRI as clinically warranted. Narrative 11/03/2021 12:29 EDT INDICATION: tailbone pain. COMPARISON: None. TECHNIQUE: Sacrum coccyx 2 or more views. FINDINGS: There is a transitional lumbosacral segment (lumbar-like S1 segment). The sacrum is otherwise unremarkable. Bone density is normal. No fracture is identified. If there is continued clinical concern for occult fracture then consider follow-up radiograph or further assessment with MRI as clinically warranted. The sacroiliac joints are normal. The visualized hip joint spaces are well-maintained. The pubic symphysis is intact. Procedure Note Nikhil Odell MD - 11/03/2021 INDICATION: tailbone pain. COMPARISON: None. TECHNIQUE: Sacrum coccyx 2 or more views. FINDINGS: There is a transitional lumbosacral segment (lumbar-like S1 segment). Thesacrum is otherwise unremarkable. Bone density is normal. No fracture isidentified. If there is continued clinical concern for occult fracturethen consider follow-up radiograph or further assessment with MRI asclinically warranted. The sacroiliac joints are normal. The visualized hip joint spaces arewell- maintained. The pubic symphysis is intact. IMPRESSION No fracture is identified. If there is continued clinical concern foroccult fracture then consider follow-up radiograph or further assessmentwith MRI as clinically warranted. us Marian Rosales MD [facility] ORDERABL ES Final Result * XR LUMBAR SPINE 2-3 VIEWS (11/03/2021 12:15 EDT) Anatomical Region Laterality Modality Spine Computed Radiogr aphy 11/03/2021 12:3 1 EDT Impressions 11/03/2021 12:31 EDT Mild scoliosis and degenerative spondylosis of the lumbar spine. Narrative 11/03/2021 12:31 EDT INDICATION: midline low back pain. COMPARISON: None. TECHNIQUE: AP and lateral views lumbar spine were obtained. FINDINGS: There is a transitional lumbosacral segment which is considered to be a lumbar- like S1 vertebra. Using this convention, there are vestigial ribs at L1. There is a mild scoliosis of the lumbar spine, apex to the left. There is mild degenerative disc disease at L4-L5. Bone density is normal. No fracture or subluxation is identified. Procedure Note Nikhil Odell MD - 11/03/2021 INDICATION: midline low back pain. COMPARISON: None. TECHNIQUE: AP and lateral views lumbar spine were obtained. FINDINGS: There is a transitional lumbosacral segment which is considered to be alumbar- like S1 vertebra. Using this convention, there are vestigial ribsat L1. There is a mild scoliosis of the lumbar spine, apex to the left. There ismild degenerative disc disease at L4-L5. Bone density is normal. Nofracture or subluxation is identified. IMPRESSION Mild scoliosis and degenerative spondylosis of the lumbar spine. us Marian Rosales MD [facility] ORDERABL ES Final Result * (ABNORMAL) POCT URINE DIPSTICK, VISUAL READ (11/03/2021 11:59 EDT) Color, UA Yellow Clarity, UA Clear Glucose, UA Negative . mg/dL Bilirubin, UA Negative Negative Ketones, UA Negative . mg/dL Spec Grav, UA 1.025 1.005 - 1.030 Blood, UA Negative Negative pH, UA 7.0 4.6 - 8.0 Protein, UA Trace(A) . mg/dL Urobilinogen, UA 0.2 0.2 - 1.0 E.U./dL Nitrite, UA Negative . Leuk Esterase Negative Negative Comment Urine URINE SPECIMEN COLLECTION, CLEAN CATCH / Unknown 11/03/2021 11:59 EDT us Marian Rosales MD POINT OF CARE TEST ORDERABLES F inal Result * POCT TEST, VISUAL READ (11/03/2021 11:58 EDT) Test, Urine, POC Negative Negative Control Line Present Yes Background Clear? Yes Urine URINE SPECIMEN COLLECTION, CLEAN CATCH / Unknown 11/03/2021 11:58 EDT us Marian Rosales MD POINT OF CARE TEST ORDERABLES F inal Result documented in this encounter Visit Diagnoses Diagnosis Acute midline low back pain with left-sided sciatica- Primary documented in this encounter Administered Medications Inactive Administered Medications - up to 3 most recent administrations Medication Order MAR Action Action Date Dose Rate Site ketOROLAC (TORADOL) injection 30 mg 30 mg, intramuscular, NOW X1, 1 dose, On Tue11/03/21 at 1200, Routine Given 11/03/2021 11:49 EDT 30 mg documented in this encounter Historical Medications * This list may reflect changes made after this encounter. albuterol 90 mcg/actuation inhaler Inhale 2 Puffs as directed every 4 hours as needed for Wheezing. cetirizine (ZYRTEC) 10 mg tablet Take 1 Tablet by mouth daily. montelukast (SINGULAIR) 10 mg tablet Take 1 Tablet by mouth daily. added in this encounter Active and Recently Administered Medications Times are shown in EDT. Scheduled Medication Order 11/01/2021 11/02/2021 11/03/2021 ketOROLAC (TORADOL) injection 30 mg (COMPLETED) 30 mg, intramuscular, NOW X1, 1 dose, On Tue11/03/21 at 1200, Routine 1149 (Given - Provid er: Shante Quintero RN) documented in this encounter Care Teams Tier Lift Operator Relationship Specialty Start Date End Date [facility], [address] [address] PCP - General Family Medicine - Primary Care 06/25/21 05/16/24 documented as of this encounter
--- OUTSIDE RECORDS SUMMARY | 2024-08-18 15:27 | XMS_ITS | Encounter Summary ---
Author Organization [facility] Address [address] [place] [address] Care Team Providers Care Cafeteria Associate Name Role Phone Unavailable Primary Care Provider Unavailabl e Encounter Details Date Type Department Care Team (Late st Contact Info) Description 01/01/2021 Results Only [facility] - [facility] - [address] [address] Taniya Mario MD [address] [facility], [address] [place] [id number] Social History Tobacco Use Types Packs/Day Years [...] Procedure Name Priority Date/Time Associated Diagnosis Comments URINALYSIS - [facility] Routine 01/01/2021 18: 33 EDT DRUGS OF ABUSE SCREEN, URINE - [facility] Routine 01/01/2021 18:33 EDT ETHYL ALCOHOL - [facility] Routine 01/01/2021 18:26 EDT BHCG SCREEN - [facility] Routine 01/01/2021 18 :26 EDT LIPASE - [facility] Routine 01/01/2021 18:26 EDT COMPLETE BLOOD COUNT WITH DIFFERENTIAL (AUTO) Routine 01/01/2021 18:26 EDT THYROID CASCADE Routine 01/01/2021 18:26 EDT MAGNESIUM Routine 01/01/2021 18:26 EDT COMPREHENSIVE METABOLIC PANEL (CMP) Routine 01/01/2021 18:26 EDT documented in this encounter Results * (ABNORMAL) DRUGS OF ABUSE SCREEN, URINE - [facility] (01/01/2021 18:33 EDT) AMPHETAMINES NEG NEG 01/01/2021 19:54 EDT [facility] BARBITURATES,UR - [facility] NEG NEG 01/01/2021 19:54 EDT [facility] BENZODIAZEPINES NEG NEG 19:54 EDT [facility] COCAINE,URINE - [facility] NEG NEG 01/01/2021 19:54 T [facility] MAMP (METHAMPHETAMINES - [facility] NEG NEG 01/01/2021 19:54 EDT [facility] MARIJUANA,URINE - [facility] POS(A) NEG 01/01/2021 19:54 EDT [facility] MTD (METHADONE) - [facility] NEG NEG 01/01/2021 19:54 EDT [facility] OPIATES,URINE - [facility] NEG NEG 01/01/2021 19:54 EDT [facility] OXY (OXYCODONE) - [facility] NEG NEG 01/01/2021 19:54 EDT [facility] PCP (PHENCYCLIDINE) - [facility] NEG NEG 01/01/2021 19:54 EDT [facility] PROPOXYPHENE (PPX) - [facility] NEG NEG 01/01/2021 19:54 EDT [facility] TRICYCLIC ANTIDEPRESSANTS - [facility] NEG NEG 01/01/2021 19:54 EDT [facility] Comment: Drug Class ?Cutoff Concentration Amphetamines (AMP) ?500 ng/ml Barbiturates (BAR) ?200 ng/ml Benzodiazepines (BZO) ? 150 ng/ml Cocaine (JANNY) ? 150 ng/ml Methamphetamine (mAMP) ?500 ng/ml Methadone (MTD) ? 200 ng/ml Opiates (OPI) ? 100 ng/ml Oxycodone (OXY) ? 100 ng/ml Phencyclidine (PCP) ?25 ng/ml Tetrahydrocannabinol (THC) ? 50 ng/ml Propoxyphene (PPX) ?300 ng/ml Tricyclic antidepressants (TCA) ? 300 ng/ml This is a screening assay only, intended for use in clinical monitoring or management of patients. False positive or false negative results can occur. If confirmation testing is needed, please call the lab. Specimens are retained in the laboratory for 7 days. 01/01/2021 18:3 3 EDT 01/01/2021 19:35 EDT us Taniya Mario MD URINALYSIS ORDERABLES Sylvia andino Result [facility] [address] [place] [address] * URINALYSIS - CV (01/01/2021 18:33 EDT) URINE APPEARANCE - [facility] Clear CLEAR 01/01/2021 19:44 EDT [facility] URINE BILIRUBIN - DIPST[facility] - [facility] 1+ NEGATIVE 01/01/2021 19:44 [facility] Comment: Unable to confirm positive urine bilirubin. If clinical correlation is inconsistent, consider serum bilirubin. URINE BLOOD - [facility] Negative NEG 01/01/2021 19:44 EDT [facility] URINE COLOR - [facility] Yellow YELLOW 01/01/2021 19:44 EDT [facility] URINE GLUCOSE - [facility] - [facility] Negative NEGATIVE 01/01/2021 19:44 EDT [facility] URINE KETONE - [facility] Negative NEGATIVE 01/01/2021 19:44 [facility] URINE LEUK ESTERASE - [facility] Negative NEG 01/01/2021 19:44 EDT [facility] URINE NITRITE - [facility] - [facility] Negative NEG 01/01/2021 19:44 EDT [facility] URINE PH - [facility] 5.5 4.0 - 8.0 19:44 EDT [facility] URINE PROTEIN - [facility] - [facility] Negative NEG 01/01/2021 19:44 [facility] URINE SPECIFIC GRAVITY - [facility] >=1.030 1.001 - 1.035 01/01/2021 19:44 T [facility] URINE UROBILINOGEN - [facility] - [facility] 0.2 0.2 - 1.0 01/01/2021 19:44 EDT [facility] 01/01/2021 18:3 3 EDT 01/01/2021 19:35 EDT us Taniya Mario MD CHEMISTRY & BLOOD GAS ORDE SAMM Final Result [facility] [address] [place] [address] * THYROID CASCADE (01/01/2021 18:26 EDT) Pathologist [facility] TSH 0.82 0.46 - 4.68 uIU/mL 01/01/2021 20:18 EDT [facility] 01/01/2021 18:2 6 EDT 01/01/2021 19:21 EDT us Taniya Mario MD CHEMISTRY & BLOOD GAS ORDE RABLES Final Result Performing Organization Address City/[facility]/ZIP Co de Phone Number [facility] [address] [place] [address] * MAGNESIUM (01/01/2021 18:26 EDT) [facility] Magnesium 1.90 1.7 - 2.8 mg/dL 01/01/2021 19:47 EDT [facility] 01/01/2021 18:2 6 EDT 01/01/2021 19:21 EDT us Taniya Mario MD CHEMISTRY & BLOOD GAS ORDE RABLES Final Result Performing Organization Address [facility]/ZIP Co de Phone Number [facility] [address] [place] [address] * LIPASE - [facility] (01/01/2021 18:26 EDT) [facility] LIPASE SERPL-CCNC - [facility] 86 <251 U/L 01/01/2021 19:47 EDT [facility] 01/01/2021 18:2 6 EDT 01/01/2021 19:21 EDT us Taniya Mario MD CHEMISTRY & BLOOD GAS ORDE RABLES Final Result Performing Organization Address City/[facility] Co de Phone Number [facility] [address] [place] [address] * ETHYL ALCOHOL - [facility] (01/01/2021 18:26 EDT) [facility] ETHYL ALCOHOL - [facility] <10.0 <10 mg/dL 01/01/2021 19:47 EDT [facility] 01/01/2021 18:2 6 EDT 01/01/2021 19:21 EDT Taniya Mario MD CHEMISTRY & BLOOD GAS STEVIE QUIJANO Final Result [facility] [address] [place] [address] * (ABNORMAL) COMPREHENSIVE METABOLIC PANEL (CMP) (01/01/2021 18:26 EDT) Pathologist [facility] Albumin % 4.2 3.4 - 4.9 g/dL 01/01/2021 19:47 EDT [facility] ALKALINE PHOSPHATASE - [facility] 76 38 - 126 U/L 01/01/2021 19:47 [facility] BILIRUBIN TOTAL 0.6 0.2 - 1.3 mg/dL 01/01/2021 19:47 [facility] BUN - [facility] 6(L) 10 - 26 mg/dL 01/01/2021 19:47 [facility] CALCIUM - [facility] 9.9 8.5 - 10.5 mg/dL 01/01/2021 19:47 [facility] Chloride 108 96 - 110 mmol/L 01/01/2021 19:47 [facility] CO2 Total 22 22 - 32 mEq/L 01/01/2021 19:47 [facility] CREATININE 0.52 0.52 - 1.04 mg/dL 01/01/2021 19:47 [facility] eGFR >60 01/01/2021 19:47 [facility] Comment: Chronic renal impairment is defined as GFR <60 Multiply result by 1.210 for patients. eGFR calculated using the IDMS-traceable MDRD Study Equation. ??(effective 06/17/2014) Anion Gap 13 0 - 18 01/01/2021 19:47 [facility] GLUCOSE - [facility] 91 70 - 100 mg/dL 01/01/2021 19:47 [facility] Potassium 4.2 3.5 - 5.0 mEq/L 01/01/2021 19:47 EDT [facility] Sodium 143 136 - 145 mEq/L 01/01/2021 19:47 EDT [facility] TOTAL PROTEIN - [facility] 7.2 6.2 - 8.2 gm/dL 01/01/2021 19:47 EDT [facility] SGOT/AST - [facility] 23 14 - 36 U/L 01/01/2021 19:47 EDT [facility] SGPT/ALT - [facility] 15 0 - 35 U/L 19:47 EDT [facility] 01/01/2021 18:2 6 EDT 01/01/2021 19:21 EDT us Taniya Mario MD CHEMISTRY & BLOOD GAS ORDE [facility] Final Result Performing Organization Address City/[facility]/ZIP Co de Phone Number [facility] [address] [place] [address] * BHCG SCREEN - [facility] (01/01/2021 18:26 EDT) CG SCREEN - [facility] NEG 01/01/2021 19:39 EDT [facility] 01/01/2021 18:2 6 EDT 01/01/2021 19:21 EDT us Taniya Mario MD HEMATOLOGY & PF4 ORDERABLE S Final Result Performing Organization Address City/[facility]/ZIP Co de Phone Number [facility] [address] [place], [place] [id number] * (ABNORMAL) COMPLETE BLOOD COUNT WITH DIFFERENTIAL (AUTO) (01/01/2021 18:26 EDT) ABSOLUTE NEUTROPHIL COUN - [facility] 5.7 2.2 - 8.85 10e3/uL 01/01/2021 19:30 EDT [facility] BASO # - [facility] 0.03 0.01 - 0.11 10e/uL 01/01/2021 19:30 EDT [facility] BASO % - [facility] 0 0 - 2 % 01/01/2021 19:30 [facility] EOS # - [facility] 0.18 0.03 - 0.61 10e3/ul 01/01/2021 19:30 [facility] EOS % - [facility] 2 0 - 5 % 01/01/2021 19:30 [facility] GRAN % - [facility] 60.8 40 - 80 % 01/01/2021 19:30 [facility] HEMATOCRIT - [facility] 44.3 34.9 - 44.4 % 01/01/2021 19:30 [facility] HEMOGLOBIN - [facility] 15.3(H) 11.6 - 15.2 g/dl 01/01/2021 19:30 [facility] IG# - [facility] 0.03 0 - 0.7 10e3/uL 01/01/2021 19:30 [facility] IG% - [facility] 0.3 0 - 0.9 % 01/01/2021 19:30 [facility] LYMPH # - [facility] 2.9 1.09 - 3.3 10e3/ul 01/01/2021 19:30 [facility] LYMPH% - [facility] 30.4 20 - 40 % 01/01/2021 19:30 [facility] MEAN CORPUSCULAR HGB - [facility] 32.8 26.7 - 33.3 pg 01/01/2021 19:30 [facility] MEAN CORPUSCULAR HGB CONC - [facility] 34.5 32.1 - 35.9 g/dL 01/01/2021 19:30 [facility] MEAN CELL VOLUME - [facility] 94.9 81 - 98 fl 01/01/2021 19:30 [facility] MONO # - [facility] 0.6 0.1 - 0.8 10e3/uL 01/01/2021 19:30 [facility] MONO% - [facility] 6.3 0 - 12 % 01/01/2021 19:30 [facility] PLATELET COUNT 195 141 - 377 10e3/ul 01/01/2021 19:30 [facility] RED BLOOD COUNT - [facility] 4.67 3.86 - 5.04 10e6/ul 01/01/2021 19:30 EDT [facility] RED CELL DISTRI WIDTH - [facility] 12.0 <14.7 % 01/01/2021 19:30 EDT [facility] WHITE BLOOD COUNT - [facility] 9.5 4.0 - 12.4 10e3/ul 01/01/2021 19:30 EDT [facility] 01/01/2021 18:2 6 EDT 01/01/2021 19:22 EDT us Taniya Mario MD HEMATOLOGY & PF4 ORDERABLE S Final Result [facility] [address] [place] [address] documented in this encounter Visit Diagnoses Not on filedocumented in this encounter
--- OUTSIDE RECORDS SUMMARY | 2024-08-18 15:27 | XMS_ITS | Encounter Summary ---
Author Organization [facility] Address [address] [place] [address] Care Team Providers Care Marketing Producer Name Role Phone [facility] Primary Care Provider Encounter Details Date Type Department Care Team (Latest Contact Info) Description 06/25/2021 Travel Social History Tobacco Use Types Packs/Day Years Used Date Smoking Tobacco: Every Day Smokeless Tobacco: Never Alcohol Use Standard Drinks/Week Comments Never 0 (1 standard drink = 0.6 oz pur e alcohol) Comments Unknown Sex and Gender Information Value Date Recorded Sex Assigned at Not on file Legal Sex Female 18:31 EST Gender Identity Not on file Sexual Orientation Not on file COVID-19 Exposure Response Date Recorded In the last month, have you been in contact with someone who was confirmed or suspected to have Coronavirus / COVID-19? No / Unsure 06/25/2021 14:08 EST documented as of this encounter Plan of Treatment Not on file documented as of this encounter Visit Diagnoses Not on filedocumented in this encounter Care Teams Marketing Producer Relationship Specialty Start Date End Date [facility] [address] [place] [address] PCP - General Family Medicine - Primary Care 06/25/21 05/16/24 documented as of this encounter
--- OUTSIDE RECORDS SUMMARY | 2024-08-18 15:27 | XMS_ITS | Encounter Summary ---
Author Organization [facility] Address [address] [place] [address] Care Team Providers Care Account Retention Representative Name Role Phone [facility] Primary Care Provider Encounter Details Date Type Department Care Team (Latest Contact Info) Description 11/03/2021 Travel Social History Tobacco Use Types Packs/Day [...] 10:27 EDT documented as of this encounter Plan of Treatment Not on file documented as of this encounter Visit Diagnoses Not on filedocumented in this encounter Care Teams Account Retention Representative Relationship Specialty Start Date End Date [facility] [address] [place] [address] PCP - General Family Medicine - Primary Care 06/25/21 05/16/24 documented as of this encounter
--- OUTSIDE RECORDS SUMMARY | 2024-08-18 15:27 | XMS_ITS | Encounter Summary ---
Author Organization [facility] Address [address] [place] [address] Care Team Providers Care Radiologic Technologist Name Role Phone Justus Sommers MD Primary Care Provider [phone] Encounter Details Date Type Department Care Team (Late st Contact Info) Description 06/23/2017 Historical Results Only [facility] - [facility] - [facility] [address] [place], [place] [id number] Susy Tineo MD [address] [place] [phone] Social History Tobacco Use Types Packs/Day Years [...] Procedure Name Priority Date/Time Associated Diagnosis Comments GC/CHLAMYDIA URINE - [facility] Routine 06/23/2017 15:30 EST documented in this encounter Results * GC/CHLAMYDIA URINE - [facility] (06/23/2017 15:30 EST) CHLAMYDIA URINE PCR - [facility] NOT DETECTED 06/23/2017 21:[address] [facility] GONORRHEA URINE PCR - [facility] NOT DETECTED 06/23/2017 21:[address] [facility] SOURCE URINE 06/23/2017 21:[address] [facility] 06/23/2017 15:3 0 EST 06/23/2017 18:04 EST us Susy Tineo MD CHEMISTRY & BLOOD GAS ORDERABLES Final Result [facility] documented in this encounter Visit Diagnoses Not on filedocumented in this encounter Care Teams Radiologic Technologist Relationship Specialty Start Date End Date Justus Sommers MD PCP - General 06/22/15 07/10/19 documented as of this encounter
--- OUTSIDE RECORDS SUMMARY | 2024-08-18 15:27 | XMS_ITS | Encounter Summary ---
Author Organization [facility] Address [address] [place] [address] Care Team Providers Care Special Warfare Combatant Crewman Name Role Phone Care, [facility] Primary Care Provider Edwina Naylor CARBONIZER Primary Care Provider + Encounter Details Date Type Department Care Team (Late st Contact Info) Description 01/01/2021 Results Only Imaging [facility] Radiology Results [address] [place] [address] Unknown, Provider, Social History Tobacco Use Types Packs/Day Years [...] Priority Date/Time Associated Diagnosis Comments XR CHEST 1 VIEW 01/01/2021 20:16 EDT documented in this encounter Results * XR CHEST 1 VIEW (01/01/2021 20:16 EDT) Anatomical Region Laterality Modality Computed Radiogr aphy 01/01/2021 20:1 6 EDT Narrative 01/01/2021 20:16 EDT ? EXAM: RADIOLOGY/CHEST-PORTABLE ?EX. D/ (1938) ? CLINICAL INFORMATION: ? epigastric pain ? PROCEDURE INFORMATION: ? Exam: XR Chest ? Exam date and time: 01/01/2021 18:52 ? Age: 20 years old ? Clinical indication: Pain; Other: Epigastric; Additional info: ? Epigastric pain ? TECHNIQUE: ? Imaging protocol: XR of the chest. ? Views: 1 view. ? COMPARISON: ? No relevant prior studies available. ? FINDINGS: ? Lungs: No consolidation. ? Pleural spaces: No pleural effusion. No pneumothorax. ? Heart/Mediastinum: No significant cardiomegaly for position and ? projection. ? Bones/joints: No acute fracture. ? IMPRESSION: ? Negative portable chest. ? REPORT SIGNED IN OTHER VENDOR SYSTEM 01/01/2021 ?Reported By: Angella Saldana MD ? CC: ? Transcribed Date/Time: 01/01/2021 (2015) ? Ticket Speculator: ? Printed Date/Time: 01/01/2021 (2015) ? PAGE 1 ? Signed Report ? Procedure Note Angella Saldana MD - 01/01/2021 EXAM: RADIOLOGY/CHEST-PORTABLE EX. D/ (1938) CLINICAL INFORMATION: epigastric pain PROCEDURE INFORMATION: Exam: XR Chest Exam date and time: 01/01/2021 18:52 Age: 20 years old Clinical indication: Pain; Other: Epigastric; Additional info: Epigastric pain TECHNIQUE: Imaging protocol: XR of the chest. Views: 1 view. COMPARISON: No relevant prior studies available. FINDINGS: Lungs: No consolidation. Pleural spaces: No pleural effusion. No pneumothorax. Heart/Mediastinum: No significant cardiomegaly for position and projection. Bones/joints: No acute fracture. IMPRESSION: Negative portable chest. REPORT SIGNED IN OTHER VENDOR SYSTEM 01/01/2021 Reported By: Angella Saldana MD CC: Transcribed Date/Time: 01/01/2021 (2015) Ticket Speculator: Printed Date/Time: 01/01/2021 (2015) PAGE 1 Signed Report us Provider Unknown [facility] ORDER MAICOL Final Result documented in this encounter Visit Diagnoses Not on filedocumented in this encounter Additional Health Concerns Infection Onset Date Last Indicated Resolved Time R/O COVID-19 07/10/2022 07/10/2022 07/15/2022 22:1 5 EST RSV 07/10/2022 07/10/2022 07/20/2022 22:1 5 EST R/O COVID-19 10/13/2022 10/13/2022 10/18/2022 22:1 5 EST R/O COVID-19 05/17/2024 05/17/2024 05/17/2024 10:4 1 EDT documented as of this encounter Care Teams Special Warfare Combatant Crewman Relationship Specialty Start Date End Date Care, [address] [address] PCP - General Family Medicine - Primary Care 06/25/21 05/16/24 Edwina Naylor NP [address] [place] [phone] PCP - General Family Medicine - Primary Care 05/17/24 documented as of this encounter
--- OUTSIDE RECORDS SUMMARY | 2024-08-18 15:27 | XMS_ITS | Encounter Summary ---
Author Organization [facility] Address [address] [place] [address] Care Team Providers Care Dump Worker Name Role Phone [facility] Primary Care Provider Reason for Visit * Reason Comments Abdominal Pain pt c/o low abdominal cramping intermittently for 2-3 wks. pt c/o nausea and low back pain. LMP january 10. Encounter Details Date Type Department Care Team (Late st Contact Info) Description 01/22/2022 15:06 EDT - 01/22/2022 17:18 EDT Emergency [facility] Emergency Department [address], [place] [id number] Emily Zavala PA-C [address] [place] [address] Abdominal pain, unspecified abdominal location (Primary Dx) Discharge Disposition: Home or Self [...] 14:23 EDT documented as of this encounter Last Filed Vital Signs Vital Sign Reading Time Taken Comments Blood Pressure 108/63 01/22/20221421 EDT Pulse - - Temperature 36.6 ??C (97.8 ??F) 01/22/20221421 EDT Respiratory Rate 16 01/22/20221421 EDT Oxygen Saturation 99% 01/22/20221421 EDT Inhaled Oxygen Concentration - - Weight 89.4 kg (197 lb 1.6 oz) 01/22/20221421 E DT Height 165.1 cm (5' 5) 01/22/20221421 EDT Body Mass Index 32.8 01/22/20221421 EDT documented in this encounter Discharge Instructions * Discharge Instructions* Emily Zavala PA-C - 01/22/2022 16:48 EDT You are seen in the ER today for evaluation of abdominal pain. Your exam and labs are reassuring. is negative. STD testing is pending, you will receive a phone call if either is positive and can discuss treatment at that time. Take ibuprofen and Tylenol as needed for pain. Heating pad may also help. You were offered an ultrasound to further evaluate the pelvic region and potential cause for your discomfort, however you declined. It is reasonable to have close follow-up with your provider at [facility] and return to the emergency department for worsening pain, fever or any other concerns. * Attachments The following attachments cannot be sent through Care Everywhere. * Abdominal Pain (Polish) documented in this encounter Medications at Time of Discharge albuterol 90 mcg/actuation inhaler Inhale 2 Puffs as directed every 4 hours as needed for Wheezing. cetirizine (ZYRTEC) 10 mg tablet Take 1 Tablet by mouth daily. montelukast (SINGULAIR) 10 mg tablet Take 1 Tablet by mouth daily. UNABLE TO FIND 10/13/2022 documented as of this encounter Discharge Disposition Disposition Code Departure Means Destination Home or Self Group Home documented in this encounter ED Notes * Emily Zavala PA-C - 01/22/2022 1533 EDT Emergency Department Visit Assessment and ED Course 21-year-old female with history of low back pain with sciatica presenting to the emergency department today for evaluation of a 2 to 3-week history of lower abdominal cramping with associated nausea. On exam, patient is well-appearing in no acute distress. Abdominal exam is benign with generalized tenderness without peritoneal signs. Differential includes early , cystitis, STD, ovarian cysts, endometriosis, other intra-abdominal pathology although unlikely given afebrile and 2 to 3-week course. Relevant Data as of Jan 22 1658TueJan 22, 2022 1559 WBC: 7.84 [ED] 1628 Test, Urine, POC: Negative [ED] 1628 Nitrite, UA: Negative [ED] 1628 Leuk Esterase: Negative [ED] Relevant Data User Index [ED] Emily Zavala PA-C Labs are reassuring. STD testing pending. Toradol given for pain. Discussed pelvic ultrasound for further evaluation for possible pelvic pathology. Patient declined imaging today, stating that she did not want to be in the emergency department any longer. Feel thatit is reasonable for her to have close outpatient follow-up with her benign abdominal exam and reassuring labs. She agrees to return if worsening or concerns. Final diagnoses: None Disposition: No disposition on file Chief complaint: Abdominal pain HPI Emily Norton is a 21 y.o. female with a history of low back pain with sciatica who presents to the ED for evaluation of a 2 to 3-week history of cramping and sharp bilateral abdominal pain that is intermittent and nonradiating. She reports that is associated with nausea, fatigue and dizziness. Lastmenstrual period was 01/10/2022, however states it is different than usual and started with a light pink gush before progressing to small amount of bright red blood that lasted several days. Normal periods are heavier lasting 1 week. She is in a monogamous relationship with a new partner. Denies dysuria, is requesting STD testing today. Using condoms, normally on an OCP, however has been unable topick up her prescription for the last several months. Endorses breast tenderness. Low back pain is present, patient uncertain if her usual back pain or not. No radicular symptoms. no prior abdominal surgeries or history of ovarian cyst. Possible diagnosis of endometriosis. Patient presenting today as she was unable to get an appointment with [facility] and they advised that she come in for emergency evaluation. History was provided by: Patient Patient's pertinent PMH, FH, SH were reviewed and edited as necessary. ROS A 10-point review of systems was performed. The patient answered negative to all questions with theexceptions of those explicitly detailed as positives in the HPI. Pertinent negatives are also explicitly stated. Physical Exam BP 108/63 Temp 36.6 ??C (97.8 ??F) (Temporal) Resp 16 Ht 165.1 cm (65) Wt 89.4 kg (197 lb 1.6 oz) SpO2 99% BMI 32.80 kg/m?? A medical screening exam was performed. Physical Exam Constitutional: General: She is not in acute distress. Appearance: She is well-developed. She is not diaphoretic. Eyes: Extraocular Movements: EOM normal. Conjunctiva/sclera: Conjunctivae normal. Cardiovascular: Rate and Rhythm: Normal rate and regular rhythm. Heart sounds: Normal heart sounds. Pulmonary: Effort: Pulmonary effort is normal. Breath sounds: Normal breath sounds. Abdominal: General: Abdomen is flat. There is no distension. Palpations: Abdomen is soft. Tenderness: There is generalized abdominal tenderness and tenderness in the suprapubic area. There is no right CVA tenderness, left CVA tenderness, guarding or rebound. Musculoskeletal: General: Normal range of motion. Cervical back: Normal range of motion. Lumbar back: Tenderness present. Skin: General: Skin is warm. Laboratory data was reviewed and independently interpreted. Procedures Procedures documented in this encounter Plan of Treatment Not on file documented as of this encounter Procedures Procedure Name Priority Date/Time Associated Diagnosis Comments POCT URINE DIPSTICK, VISUAL READ STAT 01/22/2022 16:26 EDT POCT TEST, VISUAL READ STAT 01/22/2022 16:25 EDT CHLAMYDIA/N. GONORRHOEAE AMPLIFIED NUCLEIC ACID STAT 01/22/2022 15:51 EDT COMPLETE BLOOD COUNT AND DIFFERENTIAL STAT 01/22/2022 15:51 EDT COMPREHENSIVE METABOLIC PANEL (CMP) STAT 01/22/2022 15:50 EDT documented in this encounter Results * POCT URINE DIPSTICK, VISUAL READ (01/22/2022 16:26 EDT) Color, UA Yellow Clarity, UA Clear Glucose, UA Negative . mg/dL Bilirubin, UA Negative Negative Ketones, UA Negative . mg/dL Spec Grav, UA 1.020 1.005 - 1.030 Blood, UA Negative Negative pH, UA 7.5 4.6 - 8.0 Protein, UA Negative . mg/dL Urobilinogen, UA 0.2 0.2 - 1.0 E.U./dL Nitrite, UA Negative . Leuk Esterase Negative Negative Comment Urine URINE SPECIMEN COLLECTION, CLEAN CATCH / Unknown 01/22/2022 16:26 EDT Emily MAS-C POINT OF CARE TEST ORDER MAICOL Final Result * POCT TEST, VISUAL READ (01/22/2022 16:25 EDT) Test, Urine, POC Negative Negative Control Line Present Yes Background Clear? Yes Urine URINE SPECIMEN COLLECTION, CLEAN CATCH / Unknown 01/22/2022 16:25 EDT Emily Zavala PA-C POINT OF CARE TEST ORDER MIACOL Final Result * CHLAMYDIA/N. GONORRHOEAE AMPLIFIED RNA (01/22/2022 15:51 EDT) Neisseria gonorrhoeae Result Negative Negative 01/22/2022 17:37 EDT [facility] Chlamydia trachomatis Result Negative Negative 01/22/2022 17:37 EDT [facility] Urine URINE / Unknown Urine Collect / Unknown 01/22/2022 15:51 EDT 01/22/2022 15:52 EDT [facility] - 01/22/2022 17:37 EDT A first catch urine specimen is acceptable for detection of Gonorrhea and Chlamydia, but might detect up to 10% fewer infections when compared with vaginal and endocervical swab samples. ? ? Xpert CT/NG Assay performance has not been evaluated in patients less than 14 years of age. ? ? Xpert CT/NG Assay performance has not been evaluated in women, or in patients with a history of hysterectomy. Emily Zavala PA-C MICROBIOLOGY - GENERAL O RDERABLES Final Result Performing Organization Address City/State/[facility] Co de Phone Number [facility] [address] [place] [address] * (ABNORMAL) COMPLETE BLOOD COUNT AND DIFFERENTIAL (01/22/2022 15:51 EDT) WBC 7.84 4.00 - 12.40 K/cmm 01/22/2022 15:57 [facility] RBC 4.76 3.86 - 5.04 M/cmm 01/22/2022 15:57 [facility] Hemoglobin 15.9(H) 11.6 - 15.2 gm/dL 01/22/2022 15:57 [facility] HCT 45.6(H) 34.9 - 44.4 % 01/22/2022 15:57 [facility] MCV 96 81 - 98 fl 01/22/2022 15:57 [facility] MCH 33.4(H) 26.7 - 33.3 pg 01/22/2022 15:57 [facility] MCHC 34.9 32.1 - 35.9 gm/dL 01/22/2022 15:57 [facility] RDW-CV 11.9 <14.7 % 01/22/2022 15:57 [facility] RDW-SD 41.6 <50.4 fl 01/22/2022 15:57 [facility] PLT 246 141 - 377 K/cmm 01/22/2022 15:57 [facility] MPV 8.7(L) 9.5 - 12.7 fl 01/22/2022 15:57 [facility] % Neutrophils 61.6 % 01/22/2022 15:57 [facility] % Lymphocytes 31.1 % 01/22/2022 15:57 [facility] % Monocytes 5.9 % 01/22/2022 15:57 [facility] % Eosinophils 1.0 % 01/22/2022 15:57 [facility] % Basophils 0.3 % 01/22/2022 15:57 [facility] % Immature Grans 0.1 % 01/23/20 15:57 [facility] Absolute Neutrophils 4.83 2.20 - 8.85 K/cmm 01/22/2022 15:57 [facility] Absolute Lymphocytes 2.44 1.09 - 3.30 K/cmm 01/22/2022 15:57 [facility] Absolute Monocytes 0.46 0.10 - 0.80 K/cmm 01/22/2022 15:57 [facility] Absolute Eosinophils 0.08 0.03 - 0.61 K/cmm 01/22/2022 15:57 [facility] ABS Basophils 0.02 0.01 - 0.11 K/cmm 01/22/2022 15:57 [facility] Absolute Immature Grans 0.01 0.00 - 0.06 K/cmm 01/22/2022 15:57 [facility] Type of Differential: Auto 01/22/2022 15:57 [facility] Blood VENOUS BLOOD / Unknown Venipuncture / Unknown 01/22/2022 15:51 EDT 01/22/2022 15:51 EDT Emily Zavala PA-C PACKAGES & DNA PROBE ORD ERABLES Final Result [facility] [address] [place] [address] * COMPREHENSIVE METABOLIC PANEL (CMP) (01/22/2022 15:50 EDT) Sodium 143 136 - 145 mmol/L 01/22/2022 16:21 [facility] Potassium 4.3 3.5 - 5.0 mmol/L 01/22/2022 16:21 [facility] Chloride 104 96 - 110 mmol/L 01/22/2022 16:21 [facility] CO2 Total 27 22 - 32 mmol/L 01/22/2022 16:21 [facility] Glucose 80 70 - 100 mg/dL 01/22/2022 16:21 [facility] BUN 10 10 - 26 mg/dL 01/22/2022 16:21 [facility] Creatinine 0.70 0.52 - 1.04 mg/dL 01/22/2022 16:21 [facility] eGFR 128 >60 mL/min/1.7 3m2 01/22/2022 16:21 [facility] Total Protein 7.7 6.3 - 8.2 g/dL 01/22/2022 16:21 [facility] Albumin 4.3 3.4 - 4.9 g/dL 01/22/2022 16:21 [facility] Alkaline Phosphatase 88 38 - 126 U/L 01/22/2022 16:21 [facility] AST 23 15 - 46 U/L 01/22/2022 16:21 [facility] ALT 22 <35 U/L 01/22/2022 16:21 [facility] Bilirubin, Total 0.6 <1.4 mg/dL 01/23/20 16:21 [facility] Calcium 9.4 8.5 - 10.5 mg/dL 01/22/2022 16:21 EDT [facility] Albumin/Globulin Ratio 1.3 1.0 - 2.5 01/22/2022 16:21 EDT [facility] Anion Gap 12 5 - 14 01/22/2022 16:21 EDT [facility] Blood VENOUS BLOOD / Unknown Venipuncture / Unknown 01/22/2022 15:50 EDT 01/22/2022 15:51 EDT Emily Zavala PA-C CHEMISTRY & BLOOD GAS OR DERABLES Final Result [facility] [address] [place] [address] documented in this encounter Visit Diagnoses Diagnosis Abdominal pain, unspecified abdominal location- Primary documented in this encounter Administered Medications Inactive Administered Medications - up to 3 most recent administrations Medication Order MAR Action Action Date Dose Rate Site ketOROLAC (TORADOL) injection 15 mg 15 mg, intravenous, NOW X1, 1 dose, On Tue01/22/22 at 1715, STAT Given 01/22/2022 17:00 EDT 15 mg sodium chloride 0.9 % BOLUS 1,000 mL 1,000 mL, intravenous, NOW X1, 1 dose, On Tue01/22/22 at 1545, STAT New Bag 01/22/2022 15:51 EDT 1,000 mL documented in this encounter Active and Recently Administered Medications Times are shown in EDT. Scheduled Medication Order 01/20/2022 01/21/2022 01/22/2022 ketOROLAC (TORADOL) injection 15 mg (COMPLETED) 15 mg, intravenous, NOW X1, 1 dose, On Tue01/22/22 at 1715, STAT 1700 (Given - Provid er: Khanh Chilel RN) sodium chloride 0.9 % BOLUS 1,000 mL (COMPLETED) 1,000 mL, intravenous, NOW X1, 1 dose, On Tue01/22/22 at 1545, STAT 1551 (New Bag - Prov ider: Khanh Chilel RN)1701 (IV Stopped - Provider: Khanh Chilel RN) documented in this encounter Care Teams Dump Worker Relationship Specialty Start Date End Date Care, [address] [address] PCP - General Family Medicine - Primary Care 06/25/21 05/16/24 documented as of this encounter
--- OUTSIDE RECORDS SUMMARY | 2024-08-18 15:27 | XMS_ITS | Encounter Summary ---
Author Organization [facility] Address [address] [place] [address] Care Team Providers Care Inside Phone Sales Name Role Phone [facility] Primary Care Provider Reason for Visit * Reason Comments Hand Pain * Auth/Cert Specialty Diagnoses / Procedures Referred By Contcarolann t Referred To Contact Diagnoses Contusion of left little finger without damage to nail, initial encounter Referral ID Status Reason Start Date Expiration Date Visits Re quested Visits Authorized [id number] 1 1 Encounter Details Date Type Department Care Team (Late st Contact Info) Description 06/25/2021 14:08 EST - 06/25/2021 15:55 EST Emergency [facility] Emergency Department [address], [place] [id number] Yakov Keller PA-C [address] [place] [address] Contusion of left little finger without damage to nail, initial encounter (Primary Dx) Discharge Disposition: Home or Self [...] 14:08 EST documented as of this encounter Last Filed Vital Signs Vital Sign Reading Time Taken Comments Blood Pressure 141/74 06/25/2021 1406 EST Pulse - - Temperature 36.6 ??C (97.9 ??F) 06/25/2021 1406 EST Respiratory Rate 18 06/25/2021 1406 EST Oxygen Saturation 96% 06/25/2021 1406 EST Inhaled Oxygen Concentration - - Weight 82 kg (180 lb 12.4 oz) 06/25/2021 1406 ES T Height 165 cm (5' 4.96) 06/25/2021 1406 EST Body Mass Index 30.12 06/25/2021 1406 EST documented in this encounter Discharge Instructions * Discharge Instructions* Yakov Keller PA-C - 06/25/2021 15:20 EST You were seen in the emergency department after a crush injury to your finger, your x-ray does not show a fracture, this will be sore in the coming days, take Tylenol and or ibuprofen for pain, wear the splint provided for the next 2 to 3 days for comfort. If pain persists beyond 10 days you should be reevaluated and ismael-rayed, you can go to your primarycare provider or express care. documented in this encounter Medications at Time of Discharge Medication Sig Dispense Quantity Refills Last Filled Start D ate End Date UNABLE TO FIND 10/13/2022 documented as of this encounter Discharge Disposition Disposition Code Departure Means Destination Home or Self [place] documented in this encounter ED Notes * Yakov Keller PA-C - 06/25/2021 1520 EST Images from the original note were not included. Emergency Department Visit Chief Complaint Hand Pain Assessment and ED Course Final diagnoses: Contusion of left little finger without damage to nail, initial encounter Disposition: No disposition on file HPI Emily Norton is a 21 y.o. female who presents today with Hand Pain Yue is a 21-year-old female who presents to the emergency department after closing her fifth digit left hand in a car door just prior to arrival, she reports that the door was completely closed with her finger stuck in the door. Denies injuries or pain elsewhere The history is provided by the patient. Data reviewed this visit: The patient's past medical, family and social history was reviewed and updated as needed. Allergies: Allergies Allergen Reactions ??? Amoxicillin Hives Review of Systems Review of Systems All other systems reviewed and are negative. - see HPI Physical Exam Vital Signs Temp: 36.6 ??C (97.9 ??F) Temp src: Temporal Resp: 18 SpO2: 96 % BP: 141/74 BP MAP: 86 mm Hg BP Device: BP Machine BP Patient Position: Sitting BP Cuff Location: Right arm O2 Device: None (Room air) Body mass index is 30.12 kg/m??. A medical screening exam was performed. Physical Exam Vitals and nursing note reviewed. Constitutional: General: She is not in acute distress. Appearance: She is well-developed and well-nourished. HENT: Nose: Nose normal. Mouth/Throat: Mouth: Mucous membranes are moist. Pharynx: Oropharynx is clear. Eyes: Conjunctiva/sclera: Conjunctivae normal. Cardiovascular: Rate and Rhythm: Normal rate. Pulmonary: Effort: Pulmonary effort is normal. No respiratory distress. Musculoskeletal: General: Normal range of motion. Arms: Cervical back: Normal range of motion and neck supple. Skin: General: Skin is warm and dry. Neurological: Mental Status: She is alert and oriented to person, place, and time. Cranial Nerves: No cranial nerve deficit. Psychiatric: Mood and Affect: Mood and affect normal. Results EKG orders: None Radiology orders: XR FINGER LEFT 2 OR MORE VIEWS Imaging Reviewed. I have independently reviewed the images: Plain film hand shows no acute bony abnormality .Procedures Procedures MDM Number of Diagnoses or Management Options Contusion of left little finger without damage to nail, initial encounter Diagnosis management comments: 21-year-old female presents to the emergency department after closing her left fifth digit in a car door, she has a small subungual hematoma and some ecchymosis to the pad of her finger. No tenderness injury, no break in skin. Plain film shows no acute bony abnormality. Finger placed in AlumaFoam splint, encouraged wearing for the next 2 to 3 days. See discharge instructions for patient education/return precautions Amount and/or Complexity of Data Reviewed Tests in the radiology section of CPT??: ordered Tests in the medicine section of CPT??: ordered 06/25/2021 15:20 * Filipe Spann, RN - 06/25/2021 1405 EST C/o left hand 5th digit injury, slammed in car door documented in this encounter Plan of Treatment Not on file documented as of this encounter Procedures Procedure Name Priority Date/Time Associated Diagnosis Comments XR FINGER LEFT 2 OR MORE VIEWS STAT 06/25/2021 14:55 EST documented in this encounter Results * XR FINGER LEFT 2 OR MORE VIEWS (06/25/2021 14:55 EST) Anatomical Region Laterality Modality Upper Extremities Left Computed Radio graphy 06/25/2021 15:1 0 EST Impressions 06/25/2021 15:10 EST No fracture. Narrative 06/25/2021 15:10 EST XR FINGER LEFT 2 OR MORE VIEWS ?? Signs and Symptoms/Comments: ??crush injury distal 5th digit - closed in car door Comparison: None. FINDINGS: Left 5th finger: 3 views were performed. Bones: No acute fracture or malalignment. Degenerative changes: No significant degenerative changes. Soft tissues: Soft tissue swelling. Procedure Note Bro Shaikh MD - 06/25/2021 XR FINGER LEFT 2 OR MORE VIEWS Signs and Symptoms/Comments: crush injury distal 5th digit - closed incar door Comparison: None. FINDINGS: Left 5th finger: 3 views were performed. Bones: No acute fracture or malalignment. Degenerative changes: No significant degenerative changes. Soft tissues: Soft tissue swelling. IMPRESSION No fracture. Yakov Keller PA-C IMG DIAGNOSTIC IMAGING ORDER MAICOL Final Result documented in this encounter Visit Diagnoses Diagnosis Contusion of left little finger without damage to nail, initial encounter- Primary documented in this encounter Administered Medications Inactive Administered Medications - up to 3 most recent administrations Medication Order MAR Action Action Date Dose Rate Site acetaminophen (TYLENOL) tablet 650 mg 650 mg, oral, NOW X1, 1 dose, On Tika 06/25/21 at 1500, STAT Given 06/25/2021 14:51 EST 650 mg documented in this encounter Historical Medications * This list may reflect changes made after this encounter. Medication Sig Dispense Quantity Refills Last Filled Start D ate End Date UNABLE TO FIND 10/13/2022 added in this encounter Active and Recently Administered Medications Times are shown in EST. Scheduled Medication Order 06/23/2021 06/24/2021 06/25/2021 acetaminophen (TYLENOL) tablet 650 mg (COMPLETED) 650 mg, oral, NOW X1, 1 dose, On Tika 06/25/21 at 1500, STAT 1451 (Given - Provid er: Vicky Garza RN) documented in this encounter Orders Medications Ordered That Ike ht Not Have Been Administered Count Last Ordered Date First Ordered Date acetaminophen (TYLENOL) tablet 650 mg 1 06/2021 documented in this encounter Care Teams Inside Phone Sales Relationship Specialty Start Date End Date Care, [address] [address] PCP - General Family Medicine - Primary Care 06/25/21 05/16/24 documented as of this encounter
== END 2024-08-18 15:13 | disposition home or self-care (01) ==
LOC: ER 15:24
PROVIDERS: Emergency Provider Emergency Medicine
DX: U07.1 COVID-19 (principal); J45.909 Unspecified asthma, uncomplicated; F17.290 Nicotine dependence, other tobacco product, uncomplicated
CPT/HCPCS: 99283

== ENCOUNTER 2025-06-06 09:02 | Outpatient (CLI) | payer SELFPAY ==
--- NOTE | 2025-06-06 | DI.RAD_ITS ---
Exam(s) XR CHEST 2V PA LATERAL EXAM: XR CHEST 2V PA LATERAL CLINICAL HISTORY: ASTHMA, J45.909 TECHNIQUE: 2D digital imaging was performed. Two views. COMPARISON: No exams were available for comparison FINDINGS: HEART: Normal size. Aorta: Not dilated. PULMONARY VASCULATURE: Normal. MEDIASTINUM: Unremarkable. LUNGS: Hyperinflated but clear. PLEURAL SPACE: No pleural effusion or pneumothorax. BONE:Unremarkable for age. SOFT TISSUES: Unremarkable. IMPRESSION: Mild pulmonary hyperinflation. No acute abnormality. DATA REPOSITORY: RADIATION DOSE DELIVERED:
== END 2025-06-06 09:22 ==
LOC: DI 09:02
DX: J45.909 Unspecified asthma, uncomplicated (principal); J98.4 Other disorders of lung
CPT/HCPCS: 71046

== ENCOUNTER 2025-06-06 15:18 | Outpatient (REF) | payer SELFPAY ==
[2025-06-06 16:25] LABS: HCT 48.5 % (36.0-46.0); HGB 17.1 g/dL (11.2-15.7); MCH 34.1 pg (27.0-33.0); MCHC 35.3 % (32.0-36.0); MCV 97 fL (80-95); MPV 10.0 fL (8.0-11.0); Platelet Count 238 10^3/uL (130-400); RBC 5.02 10^6/uL (3.93-5.22); RDW 12.4 % (11.7-14.6); RDW-SD 43.7 fL; WBC 10.06 10^3/uL (4.4-10.8)
[2025-06-06 16:38] LABS: ALT 28 U/L (14-59); AST 33 U/L (15-37); Albumin 4.4 g/dL (3.4-5.0); Alkaline Phosphatase 112 U/L (46-116); Anion Gap 14.2 mmol/L (3-11); BUN 12 mg/dL (7-18); Bilirubin, Total 0.9 mg/dL (0.2-1.0); CO2 22.8 mmol/L (21.0-32.0); Calcium 9.6 mg/dL (8.5-10.1); Chloride 105 mmol/L (98-107); Estimated GFR 135.07 (mL/min/1.73m2); Glucose 64 mg/dL (74-106); Potassium 4.4 mmol/L (3.5-5.1); Sodium 142 mmol/L (136-145); Total Protein 8.3 g/dL (6.4-8.2)
[2025-06-06 16:54] LABS: Hemoglobin A1C 4.8 % (<5.7)
== END 2025-06-06 15:19 | disposition home or self-care (01) ==
LOC: NCHCN 15:18
DX: Z00.00 Encounter for general adult medical examination without abnormal findings (principal)
CPT/HCPCS: 80053; 85027; 83036

== ENCOUNTER 2025-06-26 01:29 | Outpatient (CLI) | payer MEDICAID, SELFPAY ==
[2025-06-26] MEDS: Levalbuterol HFA 15 GM INH 4 PUFF IH (10:19)
[2025-06-26] MEDS: Inhaler, Assist Device 1 EACH MC (10:19)
--- NOTE | 2025-06-26 15:14 | W.PFT ---
Date of service: 06/26/25 Time of Service: 07:59 Pulmonary Function Test Result Indications: Asthma Impression 1. Good patient effort was noted. ATS standards for reproducibility were met. 2. Spirometry showed moderate obstructive lung disease with an FEV1 of 64% (2.12 L). FEV1 improved to 92% post-bronchodilator 3. Following the administration of a bronchodilator there was a significant response 4. TLC and RV were elevated, consistent with air trapping 5. DLCO was elevated at 150% predicted
== END 2025-06-26 01:30 | disposition home or self-care (01) ==
LOC: RT 01:29
PROVIDERS: Visit Provider Internal Medicine Pulmonary Disease
DX: J45.30 Mild persistent asthma, uncomplicated (principal); J44.9 Chronic obstructive pulmonary disease, unspecified
CPT/HCPCS: 94060; 94726; 94729

== ENCOUNTER 2025-06-28 11:45 | Outpatient (REF) | payer MEDICAID, SELFPAY ==
[2025-06-28 14:58] LABS: Abs Immature Grans 0.02 10^3/uL (0.0-0.06); HCT 44.3 % (36.0-46.0); HGB 15.3 g/dL (11.2-15.7); Immature Grans % 0.2 %; MCH 33.3 pg (27.0-33.0); MCHC 34.5 % (32.0-36.0); MCV 96 fL (80-95); MPV 9.2 fL (8.0-11.0); Platelet Count 222 10^3/uL (130-400); RBC 4.60 10^6/uL (3.93-5.22); RDW 12.2 % (11.7-14.6); RDW-SD 43.0 fL; WBC 8.06 10^3/uL (4.4-10.8)
[2025-06-28 15:42] LABS: TSH (W/Ref FT4) 0.90 uIU/mL (0.55-4.78)
[2025-06-28 16:11] LABS: ALT 24 U/L (10-49); AST 25 U/L (<34); Albumin 4.5 g/dL (3.4-5.0); Alkaline Phosphatase 101 U/L (46-116); Anion Gap 13.2 mmol/L (3-11); BUN 10 mg/dL (9-23); Bilirubin, Total 1.10 mg/dL (0.2-1.2); CO2 24.8 mmol/L (20.0-31.0); Calcium 9.6 mg/dL (8.3-10.6); Chloride 106 mmol/L (98-107); Glucose 48 mg/dL (74-106); Potassium 3.8 mmol/L (3.5-5.1); Sodium 144 mmol/L (136-145); Total Protein 7.7 g/dL (5.7-8.2)
[2025-07-07 13:51] LABS: 25-Hydroxy D Total 30 ng/mL
== END 2025-06-28 11:46 | disposition home or self-care (01) ==
LOC: NCHCN 11:45
DX: R89.9 Unspecified abnormal finding in specimens from other organs, systems and tissues (principal); R53.81 Other malaise; R53.83 Other fatigue
CPT/HCPCS: 80053; 82306; 84443; 85025

== ENCOUNTER 2025-06-28 17:53 | Emergency (ER) | payer MEDICAID, SELFPAY ==
[2025-06-28 17:58] VITALS: BP 126/79; PULSE 96; RESP 20; TEMP 36.7; O2SAT 96
[2025-06-28 18:01] VITALS: BP 126/79; PULSE 96; RESP 20; TEMP 36.7; O2SAT 96
--- NOTE | 2025-06-28 18:14 | ED.GENADUL_ITS ---
Discharge Plan Disposition Patient Disposition: Home Condition: Stable Discharge Details Clinical Impression: Low blood sugar reading Primary Care Provider: Holley Byrne ED Provider: Priyank Garcia Home Meds and New Rx's Prescriptions: No Action Pulmicort Flexhaler 90 mcg/actuation aerosol powdr breath activated 2 inh inhalation BID Qty: 1 6RF Rx Instructions: Rinse mouth after use naproxen 250 mg tablet 250 mg PO BID PRN (Reason: pain) 5 Days Qty: 30 1RF Rx Instructions: Take 1-2 tablets every 12 hours for dysmenorrhea albuterol sulfate 2.5 mg /3 mL (0.083 %) solution for nebulization 2.5 mg inhalation Q4H PRN albuterol sulfate [Ventolin HFA] 90 mcg/actuation HFA aerosol inhaler 2 puff inhalation 6XD PRN montelukast 10 mg tablet 10 mg PO QPM cetirizine 10 mg tablet 10 mg PO DAILY PRNQty: 7 0RF Discharge Instructions Instructions: Low Blood Sugar, Adult ED Additional Instructions: You were seen in the emergency department for your incidental reading of low blood sugar, you have been having some symptoms of dizziness and feeling off, it is possible you are having symptomatic hypoglycemia but it is too early to diagnose you with diabetes and this could be due to several other causes as well, we have sent off some hormone studies, please follow-up with your primary care provider they will likely need to refer you to endocrinology if you remain symptomatic but sometimes levels of 40-60 in females can be a normal physiological variant depending on when they ate. Please return for any episodes of near fainting, severe dizziness or any other symptomatic episodes where you feel you have low blood sugar. Stand Alone Forms: Portal Information Referrals: Holley Byrne PA [Primary Care Provider, Medicine] HPI General Date/Time Provider Initiated Documentation: 06/28/25 18:06 . HPI Narrative: 25 year-old female presents to ED today by POV/ambulating with a chief complaint of incidental hypoglycemia on outpatient lab with a value of 48 today, en couraged to come to ED for evaluation by triage line at PCP office- has been having episodic fatigue, dizziness, feeling off for a couple weeks. Quality described as difficult to describe but just feels off, no radiation to excessive thirst but she has been trying to drink lots of water thinking she has been dehydrated, denies fever, denies confusion, denies cough, denies chest pain, denies nausea vomiting. Severity is described as mild to moderate. Palliating factors include nothing specific attempted. Provoking factors include nothing specific. Events leading up to the incident/Associated Symptoms: Patient reports she has been eating adequately. Patient not anticoagulated. Related Data Home Medications Medication Instructions Recorded Confirmed cetirizine 10 mg tablet 10 mg PO DAILY PRN #7 tabs 0 08/18/24 06/28/25 albuterol sulfate 2.5 mg/3 mL 2.5 mg inhalation Q4H LA N 06/12/25 06/28/25 (0.083 %) solution for nebulization albuterol sulfate 90 mcg/actuation 2 puff inhalation 6 XD PRN 06/12/25 06/28/25 aerosol inhaler (Ventolin HFA) montelukast 10 mg tablet 10 mg PO QPM 06/12/25 budesonide 90 mcg/actuation breath 2 inh inhalation BI D #1 ea 06/26/25 06/28/25 activated powder inhaler (Pulmicort Flexhaler) naproxen 250 mg tablet 250 mg PO BID PRN pain 5 day s #30 06/26/25 06/28/25 tabs Previous Rx's Medication Instructions Recorded cetirizine 10 mg tablet 10 mg PO DAILY PRN #7 tabs 0 08/18/24 budesonide 90 mcg/actuation breath 2 inh inhalation BI D #1 ea 06/26/25 activated powder inhaler (Pulmicort Flexhaler) naproxen 250 mg tablet 250 mg PO BID PRN pain 5 day s #30 06/26/25 tabs Allergies Allergy/AdvReac Type Severity Reaction Status Date / Time Penicillins Allergy Unknown Other (See Verified 06/28/25 18:02 Comment) amoxicillin Allergy Skin Rash Verified 06/28/25 18:02 General Stated Complaint: [facility] TRISHA: 3 Review of Systems All systems reviewed & are unremarkable except as noted in HPI and below Exam Narrative Exam Narrative: GENERAL APPEARANCE: Well-nourished, non-toxic, awake and alert, atraumatic, no acute distress. SKIN: Warm, pink, dry, intact, without rashes/lesions/ulcerations. HEAD: Normocephalic, atraumatic, normal hair distribution for gender/age. EYES: Normal conjunctiva, no exudates on lids/lashes. ENT: Nares patent, no circumoral cyanosis, no facial swelling NECK: Supple, trachea midline, painless cervical ROM. LUNGS/CHEST: Non-labored respirations, normal A/P diameter, symmetrical expansion, no chest wall deformity HEART (CV/PV): No peripheral edema, no JVD. ABDOMEN: Soft, non-distended, no guarding. MSK: Normal ROM, no swelling/deformity to bilateral UEs or LEs, moving all extremities without weakness, no cyanosis, spine midline without tenderness, normal curvature. NEURO: Mental Status AAOx4 - alert to person, place, time, events No facial droop, no forehead involvement. Motor: No focal weakness - strength 5/5 in bilateral UEs and LEs, proximal and distal, symmetric. Sensory: sensation intact to light touch globally. Gait normal: patient ambulated without ataxia into ED room. PSYCH: euthymic, cooperative, pleasant, appropriate speech Course Vital Signs Vital signs: Vital Signs Temperature 36.7 C 06/28/25 17:58 Pulse 96 H 06/28/25 17:58 Respiratory Rate 20 06/28/25 17:58 Blood Pressure 126/79 06/28/25 17:58 Pulse Oximetry 96 06/28/25 17:58 Temperature 36.7 C 06/28/25 18:01 Pulse 96 H 06/28/25 18:01 Respiratory Rate 20 06/28/25 18:01 Blood Pressure 126/79 06/28/25 18:01 Blood Pressure Position Sitting 06/28/25 18:01 Pulse Oximetry 96 06/28/25 18:01 Oxygen Delivery Method Room Air 06/28/25 18:01 Oxygen Flow Rate 0 06/28/25 18:01 Medical Decision Making This dictation utilizes [id number] dictation software and may contain unedited grammatical errors. 25 year-old female presents to ED today by POV/ambulating with a chief complaint of incidental hypoglycemia on outpatient lab with a value of 48 today, encouraged to come to ED for evaluation by triage line at PCP office- has been having episodic fatigue, dizziness, feeling off for a couple weeks. Quality described as difficult to describe but just feels off, no radiation to excessive thirst but she has been trying to drink lots of water thinking she has been dehydrated, denies fever, denies confusion, denies cough, denies chest pain, denies nausea vomiting. Severity is described as mild to moderate. Palliating factors include nothing specific attempted. Provoking factors include nothing specific. Events leading up to the incident/Associated Symptoms: Patient reports she has been eating adequately. Patients' medical history: Late menses, mild persistent asthma, dysmenorrhea. Family and social history: Noncontributory. Pertinent exam findings / vital signs include benign cardiopulmonary status, neuro intact, benign abdomen. Differential / pathologies of concern include low blood sugar reading, physiologic variant of normal, insulinoma less likely, Hartland's disease, diabetes. Diagnostic studies of: - CBC, CMP, TSH, UA, send outs of insulin levels and cortisol levels. - Glucose benign it was 100 on fingerstick and 81 on CMP, no acute other abnormalities of labs Interventions of: - None encourage PCP follow-up with possible referral to endocrinology. ED Course/Assessment/Plan: 24-year-old female presents with some episodic symptomatic hypoglycemia, but could be just diet related and timing of her blood test earlier on outpatient lab draw, she has no history of diabetes, I counseled her that I could send out a couple labs for her but suggest she follow-up with her primary care provider and just keep eating normal diet and return for any worrisome dizzy spells or other emergent concerns indicating possible blood sugar issues. Findings not consistent with hypoglycemia currently, infection, thyroid problem, glucose spilling in the urine. Disposition of low blood sugar reading. Patient verbalized understanding of the plan and return to ED criteria and engaged in shared decision making. Medical Records Medical records reviewed: Yes I reviewed the patient's medical records. Lab Data Lab results reviewed: Yes I reviewed the patient's lab results. Labs: Laboratory Tests Range/Units 06/28/25 06/28/25 19:20 19:24 WBC (4.4-10.8) 10^3/uL 9.84 RBC (3.93-5.22) 10^6/uL 4.53 Hgb (11.2-15.7) g/dL 15.2 Hct (36.0-46.0) % 42.9 MCV (80-95) fL 95 MCH (27.0-33.0) pg 33.6 H MCHC (32.0-36.0) % 35.4 RDW (11.7-14.6) % 12.2 Plt Count (130-400) 10^3/uL 221 MPV (8.0-11.0) fL 8.6 Immature Gran % % 0.1 Neutrophils % % 68.9 Lymphocytes % % 25.5 Monocytes % % 4.4 Eosinophils % % 0.9 Basophils % % 0.2 Nucleated RBC % (0.0-0.3) % 0.0 Absolute Neutrophils (1.2-6.7) 10^3/uL 6.78 H Absolute Lymphocytes (1.2-3.4) 10^3/uL 2.51 Absolute Monocytes (0.1-0.8) 10^3/uL 0.43 Absolute Eosinophils (0.0-0.7) 10^3/uL 0.09 Absolute Basophils (0.0-0.2) 10^3/uL 0.02 Sodium (136-145) mmol/L 141 Potassium (3.5-5.1) mmol/L 3.7 Chloride (98-107) mmol/L 106 Carbon Dioxide (20.0-31.0) mmol/L 25.1 Anion Gap (3-11) mmol/L 9.9 BUN (9-23) mg/dL 8 L Creatinine (0.55-1.02) mg/dL 0.6 Est GFR (CKD-EPI 2020) (mL/min/1.73m2) 128.49 Glucose (74-106) mg/dL 81 Calcium (8.3-10.6) mg/dL 9.8 Total Bilirubin (0.2-1.2) mg/dL 0.80 AST (<34) U/L 25 ALT (10-49) U/L 23 Alkaline Phosphatase (46-116) U/L 103 Total Protein (5.7-8.2) g/dL 8.4 H Albumin (3.4-5.0) g/dL 4.8 TSH (0.55-4.78) uIU/mL 1.55 Urine Color (Yellow) Yellow Urine Clarity (Clear) Clear Urine pH (5-8) 6.0 Ur Specific [place] (1.005-1.025) 1.015 Urine Protein (Neg-Trace) mg/dL Negative Urine Ketones (Negative) mg/dL Trace H Urine Blood (Negative) Trace-lysed H Urine Nitrite (Negative) Negative Urine Bilirubin (Negative) Negative Urine Urobilinogen (Up to 0.2) mg/dL 0.2 Ur Leukocyte Esterase (Negative) Negative Urine RBC (0-2) HPF 3-5 H Urine WBC (0-5) HPF Negative Ur Epithelial Cells (Negative) HPF Rare Urine Crystals (Negative) HPF Negative Urine Bacteria (Negative) HPF Few Urine Casts (Negative) LPF Negative Urine Mucus (Negative) Moderate Ur Culture Indicated? No Urine Glucose (Negative) mg/dL Negative PFSH All Active Problems (Updated 06/28/25 @ 20:07 by TG Whitfield) Low blood sugar reading (Acute) Late menses (Acute) Snoring (Acute) Vapes nicotine containing substance (Acute) Mild persistent asthma (Acute) Housing instability (Acute) Anxiety (Chronic) Depression (Chronic) Dysmenorrhea (Acute) Exacerbation of intermittent asthma (Acute) Herpes labialis (Acute) Mild persistent asthma with exacerbation (Acute) COVID-19 (Acute) Social History Smoking/Tobacco Use Status: Current every day Tobacco Type: e-cigarettes Tobacco: How many years used: 9 Smokeless tobacco user: other (vape) Quit status: considering quitting Smoking risk assessment performed?: Yes Alcohol Intake: current Alcohol Intake frequency: a few times a week Drug use: Daily Substance use type: marijuana Do you feel safe at home: Yes Do you feel safe in your relationship?: Yes PAWSS Have you Been Recently Intoxicated or Drunk Within the Last 30 days?: No Have you Ever Experienced Previous Episodes of Alcohol Withdrawal?: No Have you ever Experienced Withdrawal Seizures?: No Have you ever Experienced Delirium Tremens(DT)s?: No Have you ever undergone Alcohol Rehabilitation Treatment (i.e, inpt ot out patient treatment programs)?: No Have you ever Experienced Blackouts?: No Have you ever Combined Alcohol with other Downers within the last 90 days?: No Have you ever Combined Alcohol with any other Substance of Abuse during the last 90 days?: No Positive Blood Alcohol level on Presentation? [PCS.BAL]: No Evidence of Increased Autonomic Activity (i.e. HR>120, tremor, sweating, agitation, nausea)?: No Result: 0
[2025-06-28 19:33] LABS: Abs Immature Grans 0.01 10^3/uL (0.0-0.06); HCT 42.9 % (36.0-46.0); HGB 15.2 g/dL (11.2-15.7); Immature Grans % 0.1 %; MCH 33.6 pg (27.0-33.0); MCHC 35.4 % (32.0-36.0); MCV 95 fL (80-95); MPV 8.6 fL (8.0-11.0); Platelet Count 221 10^3/uL (130-400); RBC 4.53 10^6/uL (3.93-5.22); RDW 12.2 % (11.7-14.6); RDW-SD 42.3 fL; WBC 9.84 10^3/uL (4.4-10.8)
[2025-06-28 19:37] LABS: Glucose Negative (Negative)
[2025-06-28 19:42] LABS: WBC Negative HPF (0-5)
[2025-06-28 19:43] LABS: C & S Indicated? No
[2025-06-28 19:55] LABS: ALT 23 U/L (10-49); AST 25 U/L (<34); Albumin 4.8 g/dL (3.4-5.0); Alkaline Phosphatase 103 U/L (46-116); Anion Gap 9.9 mmol/L (3-11); BUN 8 mg/dL (9-23); Bilirubin, Total 0.80 mg/dL (0.2-1.2); CO2 25.1 mmol/L (20.0-31.0); Calcium 9.8 mg/dL (8.3-10.6); Chloride 106 mmol/L (98-107); Glucose 81 mg/dL (74-106); Potassium 3.7 mmol/L (3.5-5.1); Sodium 141 mmol/L (136-145); Total Protein 8.4 g/dL (5.7-8.2)
[2025-06-28 19:58] LABS: TSH (W/Ref FT4) 1.55 uIU/mL (0.55-4.78)
[2025-07-01 11:08] LABS: Lyme Ab w Rflx to Lyme Confirm Negative (Negative)
[2025-07-02 15:07] LABS: B. miyamotoi PCR Negative (Negative); Babesia divergens/MO-1 Negative (Negative); Ehrlichia muris eauclairensis Negative (Negative)
== END 2025-06-28 20:19 | disposition home or self-care (01) ==
PROVIDERS: Emergency Provider Physician Assistant
DX: E16.2 Hypoglycemia, unspecified (principal)
CPT/HCPCS: 99283 ×2; 36416; 82962; 80053; 82533; 87798; 81003; 81015; 83525; 84443; 85025; 86618

== ENCOUNTER 2025-07-31 15:22 | Outpatient (CLI) | payer MEDICAID, SELFPAY ==
[2025-07-31 16:14] LABS: Abs Immature Grans 0.04 10^3/uL (0.0-0.06); HCT 42.9 % (36.0-46.0); HGB 15.1 g/dL (11.2-15.7); Immature Grans % 0.3 %; MCH 33.5 pg (27.0-33.0); MCHC 35.2 % (32.0-36.0); MCV 95 fL (80-95); MPV 8.6 fL (8.0-11.0); Platelet Count 255 10^3/uL (130-400); RBC 4.51 10^6/uL (3.93-5.22); RDW 11.9 % (11.7-14.6); RDW-SD 41.6 fL; WBC 12.09 10^3/uL (4.4-10.8)
[2025-07-31 17:04] LABS: TSH (W/Ref FT4) 1.10 uIU/mL (0.55-4.78)
[2025-07-31 22:46] LABS: FSH 2.5 mIU/mL (See Note)
[2025-07-31 23:24] LABS: HIV-1/2 Ag & Ab Screen Negative (Negative)
[2025-07-31 23:32] LABS: Hepatitis C Ab w Rflx HCV PCR Negative (Negative)
[2025-08-01 10:58] LABS: Syphilis Serology (RPR) Negative (Negative)
[2025-08-05 16:45] LABS: Estradiol, Mass Spectrometry 489 pg/mL
== END 2025-07-31 15:23 | disposition home or self-care (01) ==
LOC: LBO 15:22
PROVIDERS: Internal Medicine Pulmonary Disease; Visit Provider Obstetrics & Gynecology
DX: J45.40 Moderate persistent asthma, uncomplicated (principal); Z72.0 Tobacco use; R06.83 Snoring; L68.0 Hirsutism; N93.9 Abnormal uterine and vaginal bleeding, unspecified; R63.5 Abnormal weight gain; Z20.2 Contact with and (suspected) exposure to infections with a predominantly sexual mode of transmission; N91.2 Amenorrhea, unspecified; Z01.419 Encounter for gynecological examination (general) (routine) without abnormal findings
CPT/HCPCS: 36415; 84403; 86803; 87389; 82670; 82679; 82785; 83001; 84443; 85025; 86592